=== PATIENT | female | born 1945 | race Two or more races ===

== ENCOUNTER → 2024-08-02 | Outpatient (CLI) | payer MEDICARE, BC, SELFPAY ==
[2024-08-02 11:25] LABS: Basophils # (Auto) 0.1 Thou/mm3 (0.0-0.2); Basophils % (Auto) 1 % (0-2.5); Eosinophils # (Auto) 0.1 Thou/mm3 (0.0-0.5); Eosinophils % (Auto) 2 % (0-10); Hemoglobin 12.9 g/dL (12.0-16.0); Immature Granulocytes % (Auto) 1 % (0-0); Immature Granulocytes Auto 0.04 Thou/mm3 (0.00-0.00); Lymphocytes # (Auto) 1.4 Thou/mm3 (1.0-4.8); Lymphocytes % (Auto) 19 % (10-50); Mean Corpuscular HGB Conc 32.3 g/dl (31.0-37.0); Mean Corpuscular Hemoglobin 29.7 pg (25.0-35.0); Mean Corpuscular Volume 92 fL (80-100); Monocytes # (Auto) 0.5 Thou/mm3 (0.0-0.8); Monocytes % (Auto) 6 % (0-12); Neutrophils # (Auto) 5.1 Thou/mm3 (1.8-7.7); Neutrophils % (Auto) 71 % (37-80); Nucleated Red Blood Cell % 0 /100 WBC (0); Platelet Count 285 Thou/mm3 (140-440); RDW Standard Deviation 48.5 fL (36.4-46.3); Red Blood Count 4.35 Miln/mm3 (4.00-5.20); White Blood Count 7.2 Thou/mm3 (3.6-11.0)
[2024-08-02 11:44] LABS: Alanine Aminotransferase 23 U/L (10-49); Albumin, Serum 4.9 gm/dL (3.4-4.8); Albumin/Globulin Ratio 2.2 (1.2-2.2); Alkaline Phosphatase 123 U/L (46-116); Anion Gap 10 (7-16); Aspartate Amino Transferase 21 U/L (0-34); BUN/Creatinine Ratio 18 Ratio (12-20); Bilirubin,Total 0.7 mg/dL (0.3-1.2); Blood Urea Nitrogen 18 mg/dL (9-23); Calcium 9.5 mg/dL (8.3-10.6); Calcium (Corrected) 9.5 mg/dL (8.5-10.1); Carbon Dioxide 26.5 mMol/L (20.0-31.0); Cardiac Risk Estimate 2.4 RATIO (3.7-5.6); Chloride 106 mMol/L (98-107); Cholesterol 147 mg/dL (132-200); Globulin 2.2 gm/dL (2.3-3.5); Glucose 123 mg/dL (74-106); HDL Cholesterol 62 mg/dL (40-60); LDL Cholesterol,Calculated 66 mg/dL (0-130); Osmolality,Calculated 286 (275-295); Phosphorous 3.1 mg/dL (2.4-5.1); Potassium 3.8 mMol/L (3.4-5.1); Sodium 142 mMol/L (136-145); Total Protein 7.1 gm/dL (5.7-8.2); Triglycerides 96 mg/dL (30-150); eGFR 58 See Note
[2024-08-02 11:58] LABS: Glucose Estimated Average 114 mg/dL (80-131); Hemoglobin A1C 5.6 % Hgb (4.8-6.0)
[2024-08-02 13:02] LABS: Collection Type, Urine Clean Catch
[2024-08-02 13:41] LABS: Creatinine MALB Rnd Ur 190 mg/dL (30-125); Microalbumin Creat Ratio 18 mg/gCrea (<30); Microalbumin, Random Urine 34 mg/L (0-300)
[2024-08-02 13:45] LABS: Bacteria,Urine Rare; Bilirubin,Urine Negative (Negative); Blood,Urine Negative (Negative); Clarity,Urine Clear (Clear/Hazy); Color,Urine Yellow (Lt Yel-Yel); Glucose, Urine Negative (Negative); Hyaline Casts,Urine 1 /hpf (0-1); Ketones,Urine Negative (Negative); Leukocyte Esterase,Urine Negative (Negative); Nitrite,Urine Negative (Negative); PH,Urine 6.5 (5.0-7.0); Protein,Urine Trace (Neg - Trace); RBC,Urine 2 /hpf (0-3); Specific Gravity,Urine 1.022 (1.001-1.035); Squamous Epithelial Cell,Urine 1 /hpf (0-5); Urobilinogen,Urine Negative mg/dL (0.0-1.0); WBC,Urine 1 /hpf (0-5)
== END | disposition home or self-care (01) ==
PROVIDERS: PCP Internal Medicine; Referring Provider Urology; Visit Provider Internal Medicine
DX: C64.1 Malignant neoplasm of right kidney, except renal pelvis (principal); I10 Essential (primary) hypertension; E03.9 Hypothyroidism, unspecified; E78.5 Hyperlipidemia, unspecified; R73.01 Impaired fasting glucose
CPT/HCPCS: 36415; 80053; 80061; 81001; 82043; 82570; 83036; 84100; 84443; 85025

== ENCOUNTER → 2024-08-26 | Outpatient (CLI) | payer MEDICARE, BC, SELFPAY ==
[2024-08-26 13:14] LABS: Blood Urea Nitrogen 19 mg/dL (9-23); Creatinine (Component) 0.9 mg/dL (0.6-1.3); eGFR > 60 See Note
== END | disposition home or self-care (01) ==
LOC: COPL 11:44
PROVIDERS: PCP Internal Medicine; Referring Provider Urology; Visit Provider Urology
DX: C64.1 Malignant neoplasm of right kidney, except renal pelvis (principal)
CPT/HCPCS: 36415; 82565; 84520

== ENCOUNTER → 2024-09-08 | Outpatient (CLI) | payer MEDICARE, BC, SELFPAY ==
--- NOTE | 2024-09-08 11:30 | XR_ITS ---
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 CTDI: vol (mGy) 17.7 DLP: (mGycm) 843 Technique: Multiple axial sections of the abdomen and pelvis have been obtained. 64 slice high-resolution scanner used. 3 mm axial sections have been obtained, post intravenous injection 60 cc [id number] 2-D sagittal, coronal reconstructions obtained. Low dose protocols were performed. One or more of the following dose reduction techniques were used; automated exposure control, adjustment of the mA and/or KV according to patient size, use of iterative reconstruction technique. 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
== END | disposition home or self-care (01) ==
PROVIDERS: PCP Internal Medicine; Referring Provider Urology; Visit Provider Urology
DX: C64.1 Malignant neoplasm of right kidney, except renal pelvis (principal)
CPT/HCPCS: 74177; A4649; Q9967

== ENCOUNTER 2024-09-20 11:49 | Emergency (ER) | payer MEDICARE, BC, SELFPAY ==
[2024-09-20 11:50] VITALS: BMI 26.5
[2024-09-20 12:29] VITALS: BP 138/86; PULSE 84; RESP 19; TEMP 37.5; O2SAT 97
--- NOTE | 2024-09-20 12:39 | XR_ITS ---
Examination: CT cervical spine without contrast 2-D sagittal reconstructions 2-D coronal reconstructions 3-D reconstructions. Exam date and time:September 20, 2024 1532 hours INDICATIONS: Onset neck pain today CTDI:vol (mGy) 12.4 DLP: (mGycm) 273 Technique: Multiple 2 mm axial sections of the cervical spine have been obtained. The coronal and sagittal reconstructions have been obtained. 3-D reconstructions have been obtained. Low dose protocols were performed. One or more of the following dose reduction techniques were used; automated exposure control, adjustment of the mA and/or KV according to patient size, use of iterative reconstruction technique. Findings: Axial sections demonstrate intact base of the skull. C1 exhibit satisfactory relationship to the odontoid. No acute cervical vertebral body fracture seen. Alignment posterior spinous processes satisfactory. Cervical fusion C5-C7 with anatomic alignment Grade 1 anterolisthesis, minimal, 1- 2 mm C6 on C7 C4-C5 moderate right neural foraminal stenosis Impression: No acute cervical fracture. Anatomic alignment cervical fusion C5-C7 C4-C5 moderate right neural foraminal stenosis
--- NOTE | 2024-09-20 12:41 | XR_ITS ---
Examination: Shoulder,left, 3 views Technique: Shoulder AP internal rotation, AP external rotation, Y view shoulder, 3 views Exam date and time :September 20, 2024 1255 hours INDICATIONS: Shoulder pain beginning 4 days ago FINDINGS: No shoulder fracture or dislocation Moderate to advanced narrowing glenohumeral joint No calcific tendinitis IMPRESSION: Moderate to advanced narrowing glenohumeral joint
--- NOTE | 2024-09-20 13:28 | PD.EDNECK ---
ED Neck Injury Pain RME/HPI General Chief Complaint: Neck Pain/Injury Stated Complaint: LEFT SHOULDER/NECK PAIN SINCE YESTERDAY Time Seen by Provider: 09/20/24 12:15 Source: patient Arrival date/time: 09/20/24 11:49 This is a 79-year-old female who presents to the emergency department with complaints of neck pain for approximately 1 week. Patient reports pain is elicited with turning neck [id number]. Patient denies any injury. History of osteoarthritis. Denies any peripheral neuropathy, no headache no fever. Mode of arrival: ambulatory Related Data Home Medications ?Medication ?Instructions ?Recorded ?Confirmed sertraline 100 mg tablet (Zoloft) 50 mg PO HS #0 tabs 07/11/15 09/21/24 alprazolam 0.5 mg tablet (Xanax) 0.5 mg PO PRN #0 tabs 09/19/16 09/21/24 levothyroxine 25 mcg tablet 25 mcg PO QDAY 04/23/19 09/21/24 lisinopril 10 mg tablet 10 mg PO QDAY 04/23/19 09/21/24 amlodipine 10 mg tablet 10 mg PO QDAY 09/21/24 09/21/24 apixaban 5 mg tablet (Eliquis) 5 mg PO BID 09/21/24 09/21/24 gabapentin 300 mg capsule 300 mg PO QDAY PRN 09/21/24 09/21/24 labetalol 100 mg tablet 100 mg PO BID 09/21/24 09/21/24 Previous Rx's ?Medication ?Instructions ?Recorded diazepam 5 mg tablet 5 mg PO .qhs #3 tabs 01/27/24 cyclobenzaprine 5 mg tablet 5 mg PO Q8H PRN muscle spasm #10 09/20/24 tabs Allergies Allergy/AdvReac Type Severity Reaction Status Date / Time ibuprofen Allergy Severe Swelling Verified 09/21/24 08:15 of Lip/Tongue/Throat Review of Systems Review of Systems Systems Reviewed: All systems reviewed, normal except as documented Narrative Review of Systems: Gen: No fever, no chills, no weight loss EYES: No discharge, no visual changes, no pain HEENT: No ear pain, no congestion, no sore throat PULM: No shortness of breath, no cough, no congestion CV: No chest pain, no dyspnea on exertion, no palpitations GI: No nausea, no vomiting, no diarrhea, no pain, no constipation : No frequency, no urgency,? no dysuria Musc/skel: No joint pain, no back pain, + paraspinal neck pain Skin: No rash? ED Exam Narrative Physical exam: General: Sittiing in Exam table in no acute distress, answering questions appropriately HENT: normocephalic, atraumatic, EOMI, PERRLA, moist mucous membranes, + paraspinal neck pain no vertebral tenderness. Chest: chest wall is nontender Cardiac: regular rate and rhythm, normal S1 and S2, no murmurs, rubs, or gallops, capillary refill ?2 seconds Pulmonary: clear to auscultation bilaterally, no wheezing, crackles, or rhonchi Abdominal: active bowel sounds, soft, nontender, nondistended Neuro: A&OX3, CN II-XII intact, sensation grossly intact bilaterally in UE and LE. Skin: no rashes, no ecchymosis Ext: no lower extremity edema Course Quality Measures none Orders Category Date Time Status CT cervical spine wo con Stat Exams 09/20/24 12:39 Completed XR shoulder LT min 2V Stat Exams 09/20/24 12:41 Completed Acetaminophen Tab [Tylenol ES Tab] Med 09/20/24 16:21 Discontinued 1,000 mg PO X1 ONE CYCLObenzaPRINE [Flexeril] Med 09/20/24 16:21 Discontinued 10 mg PO X1 ONE Vital Signs Vital signs: Vital Signs Temperature 99.5 F 09/20/24 12:29 Pulse Rate 84 09/20/24 12:29 Respiratory Rate 19 09/20/24 12:29 Blood Pressure 138/86 H 09/20/24 12:29 Pulse Oximetry (%) 97 09/20/24 12:29 Oxygen Delivery Method Room Air 09/20/24 12:29 Neck Pain MDM Narrative MDM Narrative:: 79-year-old female presented to the emergency department with complaints of neck pain most likely cervical stenosis. Negative for injury, no fever. Recent trauma. Cervical spine obtained which demonstrates cervical stenosis. Pain medication prescribed. Advised to follow-up with PCP Turn to the emergency department is any worsening symptoms or condition. Patient data External records reviewed:: [facility] previous records Clinical information provided by:: patient Social determinants that could affect healthcare access:: none Patient has the following chronic illnesses:: none How is presenting disease/condition affected by chronic disease/condition?: no chronic disease Evaluation data The following diagnostics were reviewed and interpreted by me:: radiology exam(s) Lab and/or radiology exams considered but not ordered:: none Interpretation Summary: Examination: CT cervical spine without contrast 2-D sagittal reconstructions 2-D coronal reconstructions 3-D reconstructions. Exam date and time:September 20, 2024 1532 hours INDICATIONS: Onset neck pain today CTDI:vol (mGy) 12.4 DLP: (mGycm) 273 Technique: Multiple 2 mm axial sections of the cervical spine have been obtained. The coronal and sagittal reconstructions have been obtained. 3-D reconstructions have been obtained. Low dose protocols were performed. One or more of the following dose reduction techniques were used; automated exposure control, adjustment of the mA and/or KV according to patient size, use of iterative reconstruction technique. Findings: Axial sections demonstrate intact base of the skull. C1 exhibit satisfactory relationship to the odontoid. No acute cervical vertebral body fracture seen. Alignment posterior spinous processes satisfactory. Cervical fusion C5-C7 with anatomic alignment Grade 1 anterolisthesis, minimal, 1- 2 mm C6 on C7 C4-C5 moderate right neural foraminal stenosis Impression: No acute cervical fracture. Anatomic alignment cervical fusion C5-C7 C4-C5 moderate right neural foraminal stenosis Examination: Shoulder,left, 3 views Technique: Shoulder AP internal rotation, AP external rotation, Y view shoulder, 3 views Exam date and time :September 20, 2024 1255 hours INDICATIONS: Shoulder pain beginning 4 days ago FINDINGS: No shoulder fracture or dislocation Moderate to advanced narrowing glenohumeral joint No calcific tendinitis IMPRESSION: Moderate to advanced narrowing glenohumeral joint Medications / Prescriptions Medications or Prescriptions considered but not ordered:: none Medication administrations:: Medication Administration History Discontinued Medications Acetaminophen (Acetaminophen 500 Mg Tablet) 1,000 mg PO X1 ONE Stop: 09/20/24 16:22 Last Admin: 09/20/24 16:31 Dose: 1,000 mg Documented By: MARY Cyclobenzaprine HCl (Cyclobenzaprine 5 Mg Tablet) 10 mg PO X1 ONE Stop: 09/20/24 16:22 Last Admin: 09/20/24 16:31 Dose: 10 mg Documented By: MARY All Medications administered and effective Consultations Consultation(s) initiated? (list below): No Diagnosis Neck Differential Diagnosis: cervical radiculopathy Most likely diagnosis given after review of the tests above:: Cervical radiculopathy Admission Indicated Admission indicated?: not indicated Explain why admission is indicated or not indicated:: none Admission Request Was there a request for admission?: No Disposition Plan Disposition Plan: Discharge Discharge Attestation Discharge Attestation: The patient and all family members were given an opportunity to ask questions and understood the discharge instructions. Discharge instructions specifically effects, indications for sooner follow up or return to the emergency department, and the expected course of current diagnosis. Patient condition: Stable Discharge Plan Plan Patient Disposition: HOME (Self Care) Disposition Comment: stable Patient condition on transfer: Stable Prescriptions/Referrals Prescriptions/Med Rec: New cyclobenzaprine 5 mg tablet 5 mg PO Q8H PRN (Reason: muscle spasm) Qty: 10 0RF No Action Eliquis 5 mg tablet 5 mg PO BID labetalol 100 mg tablet 100 mg PO BID amlodipine 10 mg tablet 10 mg PO QDAY gabapentin 300 mg capsule 300 mg PO QDAY PRN sertraline [Zoloft] 100 MG tablet 50 mg PO HS Qty: 0 alprazolam [Xanax] 0.5 MG tablet 0.5 mg PO PRN Qty: 0 Hold Instructions: Resume on 08/08/22. levothyroxine 25 mcg Tablet 25 mcg PO QDAY lisinopril 10 mg Tablet 10 mg PO QDAY diazepam 5 mg tablet 5 mg PO .qhs Qty: 3 0RF Referrals: Little Castorena MD [Primary Care Provider] - In 1 week Problem List Clinical Impression: Cervical radiculopathy Patient/Caregiver Discharge Instructions Discharge Activity: activity as tolerated Education Materials: Radiculopathy Cervical, ED Neck Sprain or Strain Additional Instructions: - It is very important that you follow-up with your primary doctor for follow-up care. Your CT of your neck demonstrates cervical stenosis which is mostly causing your pain and unable to turn your neck fully. I will prescribe you some Flexeril and pain medication that you can take for pain. You want to follow-up with your doctor you might need physical therapy and a repeat MRI in the future. Print Language: Kinyarwanda Stand Alone Forms: Demetrice Award Info., Patient Portal Info Letter KAI/ROBYN Supervising Physician KAI/ROBYN Supervising Physician: Dr. romo
[2024-09-20 14:30] VITALS: BP 135/68; PULSE 85; RESP 17; TEMP 37.2; O2SAT 98
[2024-09-20] MEDS: ACETAMINOPHEN 500 MG TABLET 1000 MG PO (16:31)
[2024-09-20] MEDS: CYCLObenzaPRINE 5 MG TABLET 10 MG PO (16:31)
== END 2024-09-20 16:34 | disposition home or self-care (01) ==
PROVIDERS: Emergency Provider Emergency Medicine; PCP Internal Medicine
DX: M48.02 Spinal stenosis, cervical region (principal); M43.22 Fusion of spine, cervical region; M54.12 Radiculopathy, cervical region; M25.812 Other specified joint disorders, left shoulder
CPT/HCPCS: 72125; 73030; 99284; A9270

== ENCOUNTER → 2024-09-21 | Outpatient (BNVA) | payer MEDICARE, BC, SELFPAY | END | disposition home or self-care (01) | PROVIDERS: PCP Internal Medicine; Referring Provider Internal Medicine; Visit Provider Urology | DX: N32.81 Overactive bladder (principal); K58.9 Irritable bowel syndrome, unspecified; I10 Essential (primary) hypertension; Z85.528 Personal history of other malignant neoplasm of kidney; I72.2 Aneurysm of renal artery | CPT/HCPCS: 81003; 99212; G0463 ==

== ENCOUNTER → 2024-12-09 | Outpatient (CLI) | payer MEDICARE, BC, SELFPAY ==
[2024-12-09 12:17] LABS: Basophils # (Auto) 0.1 Thou/mm3 (0.0-0.2); Basophils % (Auto) 1 % (0-2.5); Eosinophils # (Auto) 0.2 Thou/mm3 (0.0-0.5); Eosinophils % (Auto) 2 % (0-10); Hematocrit 39.9 % (36.0-46.0); Hemoglobin 12.7 g/dL (12.0-16.0); Immature Granulocytes % (Auto) 1 % (0-0); Immature Granulocytes Auto 0.05 Thou/mm3 (0.00-0.00); Lymphocytes # (Auto) 1.9 Thou/mm3 (1.0-4.8); Lymphocytes % (Auto) 26 % (10-50); Mean Corpuscular HGB Conc 31.8 g/dl (31.0-37.0); Mean Corpuscular Hemoglobin 29.1 pg (25.0-35.0); Mean Corpuscular Volume 92 fL (80-100); Monocytes # (Auto) 0.5 Thou/mm3 (0.0-0.8); Monocytes % (Auto) 7 % (0-12); Neutrophils # (Auto) 4.7 Thou/mm3 (1.8-7.7); Neutrophils % (Auto) 64 % (37-80); Nucleated Red Blood Cell % 0 /100 WBC (0); Platelet Count 280 Thou/mm3 (140-440); RDW Standard Deviation 48.8 fL (36.4-46.3); Red Blood Count 4.36 Miln/mm3 (4.00-5.20); White Blood Count 7.4 Thou/mm3 (3.6-11.0)
[2024-12-09 12:42] LABS: Alanine Aminotransferase 15 U/L (10-49); Albumin, Serum 4.4 gm/dL (3.4-4.8); Albumin/Globulin Ratio 1.8 (1.2-2.2); Alkaline Phosphatase 79 U/L (46-116); Anion Gap 9 (7-16); Aspartate Amino Transferase 18 U/L (0-34); BUN/Creatinine Ratio 25 Ratio (12-20); Bilirubin,Total 0.6 mg/dL (0.3-1.2); Blood Urea Nitrogen 25 mg/dL (9-23); Calcium 9.1 mg/dL (8.3-10.6); Calcium (Corrected) 9.1 mg/dL (8.5-10.1); Carbon Dioxide 26.3 mMol/L (20.0-31.0); Cardiac Risk Estimate 2.1 RATIO (3.7-5.6); Chloride 110 mMol/L (98-107); Cholesterol 147 mg/dL (132-200); Globulin 2.4 gm/dL (2.3-3.5); Glucose 109 mg/dL (74-106); HDL Cholesterol 69 mg/dL (40-60); LDL Cholesterol,Calculated 65 mg/dL (0-130); Osmolality,Calculated 294 (275-295); Potassium 3.9 mMol/L (3.4-5.1); Sodium 145 mMol/L (136-145); Thyroid Stimulating Hormone 3.71 uIU/mL (0.55-4.78); Total Protein 6.8 gm/dL (5.7-8.2); Triglycerides 65 mg/dL (30-150); eGFR 58 See Note
== END | disposition home or self-care (01) ==
LOC: COPL 11:16
PROVIDERS: PCP Internal Medicine; Referring Provider Internal Medicine Cardiovascular Disease; Visit Provider Internal Medicine Cardiovascular Disease
DX: E03.9 Hypothyroidism, unspecified (principal); I10 Essential (primary) hypertension; E78.5 Hyperlipidemia, unspecified
CPT/HCPCS: 36415; 80053; 80061; 81001; 84443; 85025

== ENCOUNTER → 2024-12-13 | Outpatient (CLI) | payer MEDICARE, BC, SELFPAY ==
--- NOTE | 2024-12-13 15:08 | XR_ITS ---
Examination: Knee, right , 3 views Technique: Knee AP, lateral, oblique 3 views Date and time of exam: December 13, 2024 1603 hours INDICATIONS: Right knee pain beginning 2 months ago. FINDINGS: Mild narrowing medial joint space Mild osteoarthritis lateral joint space Moderate osteoarthritis patellofemoral joint Small knee effusion Prominent osteopenia No fracture IMPRESSION: Mild to moderate tricompartment osteoarthritis
== END | disposition home or self-care (01) ==
LOC: CDIM 14:37
PROVIDERS: PCP Internal Medicine; Referring Provider Internal Medicine; Visit Provider Internal Medicine
DX: M17.11 Unilateral primary osteoarthritis, right knee (principal)
CPT/HCPCS: 73562

== ENCOUNTER → 2024-12-17 | Outpatient (BNVA) | payer MEDICARE, BC, SELFPAY | END | disposition home or self-care (01) | PROVIDERS: PCP Internal Medicine; Referring Provider Internal Medicine; Visit Provider Urology | DX: N32.81 Overactive bladder (principal); Z85.528 Personal history of other malignant neoplasm of kidney; I10 Essential (primary) hypertension; K58.9 Irritable bowel syndrome, unspecified; E78.00 Pure hypercholesterolemia, unspecified; K21.9 Gastro-esophageal reflux disease without esophagitis; E03.9 Hypothyroidism, unspecified | CPT/HCPCS: 99213; G0463 ==

== ENCOUNTER 2025-01-20 14:08 | Outpatient (AMB) | payer MEDICARE, BC, SELFPAY ==
[2025-01-20 14:24] VITALS: BP 132/69; PULSE 80; RESP 18; TEMP 36.1; O2SAT 94; BMI 27.0
--- NOTE | 2025-01-20 14:24 | ORTHONT_ITS ---
Vital signs 01/20/25 14:24 Height 1.6 m Height Method Stated Weight 69.201 kg Weight Measurement Method Standing Scale BMI 27.0 BP 132/69 H Blood Pressure Source Automatic Cuff Blood Pressure Location Left Upper Arm Position Sitting Respiration 18 Pulse 80 Pulse Source Monitor Temp 96.9 F Temp Source Temporal Artery Scan Pulse Oximetry (%) 94 L Oxygen Delivery Method Room Air Med/Allergies Allergies & Medications Allergies ibuprofen Allergy (Severe, Verified 01/20/25 14:25) Swelling of Lip/Tongue/Throat Medication Reconciliation sertraline 100 mg tablet (Zoloft) 50 mg PO HS #0 tabs 07/11/15 [History Confirmed 01/20/25] alprazolam 0.5 mg tablet (Xanax) 0.5 mg PO PRN #0 tabs 09/19/16 [History Confirmed 01/20/25] Held on 08/07/22. Instructions: Resume on 08/08/22. levothyroxine 25 mcg tablet 25 mcg PO QDAY 04/23/19 [History Confirmed 01/20/25] lisinopril 10 mg tablet 10 mg PO QDAY 04/23/19 [History Confirmed 01/20/25] diazepam 5 mg tablet 5 mg PO .qhs #3 tabs 01/27/24 [Rx Confirmed 01/20/25] cyclobenzaprine 5 mg tablet 5 mg PO Q8H PRN muscle spasm #10 tabs 09/20/24 [Rx Confirmed 01/20/25] amlodipine 10 mg tablet 10 mg PO QDAY 09/21/24 [History Confirmed 01/20/25] apixaban 5 mg tablet (Eliquis) 5 mg PO BID 09/21/24 [History Confirmed 01/20/25] gabapentin 300 mg capsule 300 mg PO QDAY PRN 09/21/24 [History Confirmed 01/20/25] labetalol 100 mg tablet 100 mg PO BID 09/21/24 [History Confirmed 01/20/25] Exam Exam Breathing is nonlabored. Patient has a normal mood and affect. Bilateral extremities were evaluated and demonstrates sensation intact to light touch. Palpable pedal pulses are present. No significant edema is present. Bilateral hips were examined. The patient has no pain with log roll of the hips. Internal rotation to 30 degrees and external rotation to 30 degrees is painless. Negative FADIR. Left knee was examined today. The left knee is in reasonable alignment. Range of motion from 0-120 degrees. Knee is stable to varus and valgus as well as AP translation with <5mm. Patient has a negative McMurrays. There is no pain with patellofemoral compression and no crepitus noted. The knee is nontender to palpation. The right knee was also examined. The right knee is in varus alignment. Range of motion from 0-115 degrees. Knee is stable to varus and valgus as well as AP translation with <5mm. Patient has a negative McMurrays. There is no pain with patellofemoral compression and no crepitus noted. The knee is tender to palpation medially. X-rays demonstrate mild to moderate arthritis.. An MRI also demonstrates moderate arthritis Assessment and Plan Problem List (1) Arthritis of right knee: Status: Acute Plan: Patient is a 79-year-old female with right knee pain and right knee arthritis. She has done well with nonoperative treatment including a cortisone injection. She cannot take NSAIDs because of her Eliquis history. We recommend continued nonoperative treatment for now. I would like to get a weightbearing x-ray. Advanced Care Planning Discussion Advance care planning discussed with:: patient Office Procedures GNS Level of Care Nursing/Assessment Patient Status: Initial/New Patient Nursing Assessment/Reassesment: Medication Reconciliation, Update PMH in EMR and Vital Signs Coordination of Care: Complex Care and Chronic Disease 1-5, Education Complex Pt/Fam, Consent,records obtained, informed consent, 1 Ins Authorization, Lab and Imaging orders, Results/Orders obtained and Staff clarify orders New Patient Charge New Patient Point Assignment: 1124 New Patient Point Charge: UNIT SECY Level 4 ([id number]) MA Intake Visit Data Collection New Patient or Established: New Patient (never been to [facility]) Reason for Visit:: RIGHT KNEE PAIN Seen by Clinical Staff ONLY (RN/MA): No PCP or OBGYN visit in last 3 months: Yes Hx Now: No Do You Feel Safe at Home: Yes Authorities Contacted: N/A Questionairres Past Medical History Past Medical History Have you ever been diagnosed with any of the following: Neurological Problems Seizures: No Migraine: No Cardiology Problems Hypercholesterolemia: Yes Congestive Heart Failure: No Hypertension: Yes Respiratory Problems Chronic Obstructive Pulmonary Disease (COPD): No Asthma: No Bronchitis: Yes Pneumonia: Yes Sleep Apnea: No Smoking: No Smoking Exposure: No Stomache/Intestinal Problems Gall Bladder Disease: Yes Diverticulitis: Yes Ulcer: Yes Irritable Bowel: Yes Hiatal Hernia: Yes Gastroesophageal Reflux Disease: Yes Genital/Urinary Problems Renal Disease: No Reproductive Problems Previous Pregnancies: Yes Musculoskeletal Problems Arthritis: Yes Endocrine Problems Diabetes Mellitus Type 1: No Diabetes Mellitus Type 2: No Hypothyroidism: Yes Blood Problems Anemia: Yes Psychologic Problems Depression: Yes Anxiety: Yes Other Problems Blood Transfusions: Yes Blood Transfusion Reaction: No Anesthesia Reactions: No Chicken Pox: Yes Measles: Yes Mumps: Yes Cancer: Yes Subjective Visit Visit for: new patient and knee Immunization / Flu Flu Vaccine in the Last 12 Months: No Flu Vaccine Exclusion Criteria: No Exclusion Criteria History of Present Illness Chief complaint: Right knee pain Luz is a pleasant 79-year-old female with right knee pain has been ongoing for several months. She had a right knee injection with Dr. Ruvalcaba. This helped with the pain quite tremendously. Pain Pain level (0-10): 2 Pain duration: COMES AND GOES Pain location: inside (medial), outside (lateral), anterior and posterior Pain quality: sharp, dull and aching Pain timing: other (specify) Associated signs & symptoms: weakness and other (specify) (SWELLING) Ambulatory data Ambulatory device: cane Treatments Number of previous injections: 1 Improvement with previous injections: Yes Improvement with PT: No Improvement with NSAIDS: no Review of Systems Review of Systems: All systems negative unless otherwise noted in HPI.
--- NOTE | 2025-01-20 14:39 | XR_ITS ---
Examination: Right knee 4 views TECHNIQUE: AP oblique lateral axial right knee 4 views Date and time: January 20, 2025 1554 hours INDICATIONS: Right knee pain beginning one month ago. FINDINGS: Mild to moderate tricompartment osteoarthritis most prominent lateral and patellofemoral joints No patellar dislocation No fracture IMPRESSION: Mild to moderate tricompartment joint narrowing
[2025-01-20 15:18] VITALS: BP 104/67; PULSE 66; RESP 17; TEMP 36.3; O2SAT 94; BMI 29.7
--- NOTE | 2025-01-20 15:18 | ORTHONT_ITS ---
Vital signs 01/20/25 14:24 01/20/25 15:18 01/20/25 15:21 Height 1.6 m 1.6 m Height Method Stated Stated Weight 69.201 kg 76.289 kg Weight Measurement Method Standing Scale Standing Scale BMI 27.0 29.7 BP 132/69 H 104/67 132/69 H Blood Pressure Source Automatic Cuff Automatic Cuff Blood Pressure Location Left Upper Arm Right Upper Arm Position Sitting Sitting Respiration 18 17 18 Pulse 80 66 80 Pulse Source Monitor Monitor Temp 96.9 F 97.3 F 96.9 F Temp Source Temporal Artery Scan Temporal Artery Scan Pulse Oximetry (%) 94 L 94 L 94 L Oxygen Delivery Method Room Air Room Air Med/Allergies Allergies & Medications Allergies ibuprofen Allergy (Severe, Verified 01/20/25 15:19) Swelling of Lip/Tongue/Throat Medication Reconciliation sertraline 100 mg tablet (Zoloft) 50 mg PO HS #0 tabs 07/11/15 [History Confirmed 01/20/25] alprazolam 0.5 mg tablet (Xanax) 0.5 mg PO PRN #0 tabs 09/19/16 [History Confirmed 01/20/25] Held on 08/07/22. Instructions: Resume on 08/08/22. levothyroxine 25 mcg tablet 25 mcg PO QDAY 04/23/19 [History Confirmed 01/20/25] lisinopril 10 mg tablet 10 mg PO QDAY 04/23/19 [History Confirmed 01/20/25] diazepam 5 mg tablet 5 mg PO .qhs #3 tabs 01/27/24 [Rx Confirmed 01/20/25] cyclobenzaprine 5 mg tablet 5 mg PO Q8H PRN muscle spasm #10 tabs 09/20/24 [Rx Confirmed 01/20/25] amlodipine 10 mg tablet 10 mg PO QDAY 09/21/24 [History Confirmed 01/20/25] apixaban 5 mg tablet (Eliquis) 5 mg PO BID 09/21/24 [History Confirmed 01/20/25] gabapentin 300 mg capsule 300 mg PO QDAY PRN 09/21/24 [History Confirmed 01/20/25] labetalol 100 mg tablet 100 mg PO BID 09/21/24 [History Confirmed 01/20/25] Assessment and Plan Problem List (1) Arthritis of right knee: Status: Acute Advanced Care Planning Discussion Advance care planning discussed with:: patient Office Procedures GNS Level of Care Nursing/Assessment Patient Status: Established Patient Nursing Assessment/Reassesment: Medication Reconciliation, Update PMH in EMR and Vital Signs Coordination of Care: Complex Care and Chronic Disease 1-5, Consent,records obtained, informed consent, Education Simp Pt/Fam, Results/Orders obtained and Staff clarify orders Established Patient Charge Established Patient Point Assignment: 90 Established Patient Point Charge: EP Level 3 (80-115) GNS Level of Care Nursing/Assessment Patient Status: Initial/New Patient Nursing Assessment/Reassesment: Medication Reconciliation, Update PMH in EMR and Vital Signs Coordination of Care: Complex Care and Chronic Disease 1-5, Education Complex Pt/Fam, Consent,records obtained, informed consent, 1 Ins Authorization, Lab and Imaging orders, Results/Orders obtained and Staff clarify orders New Patient Charge New Patient Point Assignment: 1124 New Patient Point Charge: IMPORT CLERK Level 4 ([id number]) MA Intake Visit Data Collection New Patient or Established: Established Patient (seen at [facility] within 3 years) Reason for Visit:: FU RT HIP/LT KNEE XRAY Seen by Clinical Staff ONLY (RN/MA): No Printing Sales Representative Required: No PCP or OBGYN visit in last 3 months: Yes Hx Now: No Do You Feel Safe at Home: Yes Authorities Contacted: N/A Questionairres Past Medical History Past Medical History Have you ever been diagnosed with any of the following: Neurological Problems Seizures: No Migraine: No Cardiology Problems Hypercholesterolemia: Yes Congestive Heart Failure: No Hypertension: Yes Respiratory Problems Chronic Obstructive Pulmonary Disease (COPD): No Asthma: No Bronchitis: Yes Pneumonia: Yes Sleep Apnea: No Smoking: No Smoking Exposure: No Stomache/Intestinal Problems Gall Bladder Disease: Yes Diverticulitis: Yes Ulcer: Yes Irritable Bowel: Yes Hiatal Hernia: Yes Gastroesophageal Reflux Disease: Yes Genital/Urinary Problems Renal Disease: No Reproductive Problems Previous Pregnancies: Yes Musculoskeletal Problems Arthritis: Yes Endocrine Problems Diabetes Mellitus Type 1: No Diabetes Mellitus Type 2: No Hypothyroidism: Yes Blood Problems Anemia: Yes Psychologic Problems Depression: Yes Anxiety: Yes Other Problems Blood Transfusions: Yes Blood Transfusion Reaction: No Anesthesia Reactions: No Chicken Pox: Yes Measles: Yes Mumps: Yes Cancer: Yes Subjective Visit Visit for: hip (RIGHT HIP) and knee (LEFT KNEE ) Immunization / Flu Flu Vaccine in the Last 12 Months: No Flu Vaccine Exclusion Criteria: Refused by Patient Personal History Red flag PMH: none Pain Pain level (0-10): 7 Pain duration: 2 WEEKS Pain location: groin and anterior Pain quality: sharp and aching Pain timing: night and increases with activity Associated signs & symptoms: stiffness Ambulatory data Ambulatory device: none Walking distance (minutes): 1 Treatments Number of previous injections: 0 Number of Physical Therapy sessions: 0 Improvement with NSAIDS: n/a Review of Systems Review of Systems: All systems negative unless otherwise noted in HPI.
[2025-01-20 15:21] VITALS: BP 132/69; PULSE 80; RESP 18; TEMP 36.1; O2SAT 94
== END 2025-01-20 14:43 | disposition home or self-care (01) ==
LOC: HODSRG 14:08
PROVIDERS: PCP Internal Medicine; Referring Provider Internal Medicine; Supervising Provider Orthopaedic Surgery Adult Reconstructive Orthopaedic Surgery; Visit Provider Orthopaedic Surgery Adult Reconstructive Orthopaedic Surgery
DX: M17.11 Unilateral primary osteoarthritis, right knee (principal); M25.561 Pain in right knee; I10 Essential (primary) hypertension; E78.00 Pure hypercholesterolemia, unspecified; K21.9 Gastro-esophageal reflux disease without esophagitis; E03.9 Hypothyroidism, unspecified
CPT/HCPCS: 73564; 99204; 99213; G0463

== ENCOUNTER 2025-02-15 08:59 | Outpatient (AMB) | payer MEDICARE, BC, SELFPAY ==
--- NOTE | 2025-02-15 09:16 | PD.ORTHCLVIS ---
Vital signs 02/15/25 09:17 Height 1.6 m Height Method Stated Weight 68.974 kg Weight Measurement Method Standing Scale BMI 26.9 BP 130/78 Blood Pressure Source Automatic Cuff Blood Pressure Location Left Upper Arm Position Sitting Respiration 18 Pulse 82 Pulse Source Monitor Temp 97.8 F Temp Source Temporal Artery Scan Pulse Oximetry (%) 97 Oxygen Delivery Method Room Air Med/Allergies Allergies & Medications Allergies ibuprofen Allergy (Severe, Verified 02/15/25 09:17) Swelling of Lip/Tongue/Throat Medication Reconciliation sertraline 100 mg tablet (Zoloft) 50 mg PO HS #0 tabs 07/11/15 [History Confirmed 02/15/25] alprazolam 0.5 mg tablet (Xanax) 0.5 mg PO PRN #0 tabs 09/19/16 [History Confirmed 02/15/25] Held on 08/07/22. Instructions: Resume on 08/08/22. levothyroxine 25 mcg tablet 25 mcg PO QDAY 04/23/19 [History Confirmed 02/15/25] lisinopril 10 mg tablet 10 mg PO QDAY 04/23/19 [History Confirmed 02/15/25] diazepam 5 mg tablet 5 mg PO .qhs #3 tabs 01/27/24 [Rx Confirmed 02/15/25] cyclobenzaprine 5 mg tablet 5 mg PO Q8H PRN muscle spasm #10 tabs 09/20/24 [Rx Confirmed 02/15/25] amlodipine 10 mg tablet 10 mg PO QDAY 09/21/24 [History Confirmed 02/15/25] apixaban 5 mg tablet (Eliquis) 5 mg PO BID 09/21/24 [History Confirmed 02/15/25] gabapentin 300 mg capsule 300 mg PO QDAY PRN 09/21/24 [History Confirmed 02/15/25] labetalol 100 mg tablet 100 mg PO BID 09/21/24 [History Confirmed 02/15/25] Exam Exam Breathing is nonlabored. Patient has a normal mood and affect. Bilateral extremities were evaluated and demonstrates sensation intact to light touch. Palpable pedal pulses are present. No significant edema is present. Bilateral hips were examined. The patient has no pain with log roll of the hips. Internal rotation to 30 degrees and external rotation to 30 degrees is painless. Negative FADIR. Left knee was examined today. The left knee is in reasonable alignment. Range of motion from 0-120 degrees. Knee is stable to varus and valgus as well as AP translation with <5mm. Patient has a negative McMurrays. There is no pain with patellofemoral compression and no crepitus noted. The knee is nontender to palpation. The right knee was also examined. The right knee is in varus alignment. Range of motion from 0-115 degrees. Knee is stable to varus and valgus as well as AP translation with <5mm. Patient has a negative McMurrays. There is no pain with patellofemoral compression and no crepitus noted. The knee is tender to palpation medially. X-rays demonstrate mild to moderate arthritis.. An MRI also demonstrates moderate arthritis Assessment and Plan Problem List (1) Arthritis of right knee: Status: Acute Plan: Patient is a 79-year-old female with right knee pain and right knee arthritis. She has done well with nonoperative treatment including a cortisone injection. She cannot take NSAIDs because of her Eliquis history. We recommend continued nonoperative treatment for now. She would like bilateral knee injections today Plan Recommend knee cortisone injections as patient would like to proceed with conservative treatment at this time. The risks and benefits of the procedure were reviewed with the patient and patient gave verbal consent to continue with the procedure. Procedure: performed by Dr. Easley Using sterile technique the Bilateral knees were thoroughly prepped with alcohol, and approximately 1 cc of Kenalog 40 mg/mL and 4 cc of 1% lidocaine was injected into each knee without resistance into the medial tibial femoral joint space. The patient tolerated the procedure. Advanced Care Planning Discussion Advance care planning discussed with:: patient Office Procedures GNS Level of Care Nursing/Assessment Patient Status: Established Patient Nursing Assessment/Reassesment: Medication Reconciliation, Update PMH in EMR and Vital Signs Coordination of Care: Complex Care and Chronic Disease 1-5, Education Complex Pt/Fam, Consent,records obtained, informed consent, Results/Orders obtained and Staff clarify orders Established Patient Charge Established Patient Point Assignment: 95 Established Patient Point Charge: EP Level 3 (80-115) Surgical Proc/IM SQ injection Major Surgical Procedure: Yes (BILATERAL KNEE INJECTION ) Medication Given Medication Given Medication Given: Yes Documented Dose Given: 8 Route: Infiitration Medication Given Medication Given Medication Given: Yes Documented Dose Given: 2 Route: Infiitration Office Meds Xylocaine 10 mg/mL (1 %) injection solution Performing Provider: Homar Easley MD Performing Location: [facility] Administered by: Homar Easley MD on 02/15/25 11:47 Dose Route Admin Location Dispensed Lot Number Expiration Date [facility] Wet Machine Cutter 40 mL Infiltration 40 mL [id number] triamcinolone acetonide 40 mg/mL suspension for injection Performing Provider: Homar Easley MD Performing Location: [facility] Administered by: Homar Easley MD on 02/15/25 11:47 Dose Route Admin Location Dispensed Lot Number Expiration Date [facility] Wet Machine Cutter 80 mg intra-articular KNEE 2 mL [id number] 03/01/26 59396-088-98 LORENZO ARZATE [place] Intake Visit Data Collection New Patient or Established: Established Patient (seen at [facility] within 3 years) Reason for Visit:: XRAY RESULTS BL KNEE PAIN/REQ INJ Seen by Clinical Staff ONLY (RN/MA): No Reservoir Engineer Required: No PCP or OBGYN visit in last 3 months: Yes Hx Now: No Do You Feel Safe at Home: Yes Authorities Contacted: N/A Questionairres Past Medical History Past Medical History Have you ever been diagnosed with any of the following: Neurological Problems Seizures: No Migraine: No Cardiology Problems Hypercholesterolemia: Yes Congestive Heart Failure: No Hypertension: Yes Respiratory Problems Chronic Obstructive Pulmonary Disease (COPD): No Asthma: No Bronchitis: Yes Pneumonia: Yes Sleep Apnea: No Smoking: No Smoking Exposure: No Stomache/Intestinal Problems Gall Bladder Disease: Yes Diverticulitis: Yes Ulcer: Yes Irritable Bowel: Yes Hiatal Hernia: Yes Gastroesophageal Reflux Disease: Yes Genital/Urinary Problems Renal Disease: No Reproductive Problems Previous Pregnancies: Yes Musculoskeletal Problems Arthritis: Yes Endocrine Problems Diabetes Mellitus Type 1: No Diabetes Mellitus Type 2: No Hypothyroidism: Yes Blood Problems Anemia: Yes Psychologic Problems Depression: Yes Anxiety: Yes Other Problems Blood Transfusions: Yes Blood Transfusion Reaction: No Anesthesia Reactions: No Chicken Pox: Yes Measles: Yes Mumps: Yes Cancer: Yes Subjective Visit Visit for: follow up visit, knee and x-rays Immunization / Flu Flu Vaccine in the Last 12 Months: No Flu Vaccine Exclusion Criteria: No Exclusion Criteria History of Present Illness Chief complaint: bl knee pain Luz is a pleasant 79-year-old female with right knee pain has been ongoing for several months. She had a right knee injection with Dr. Ruvalcaba. This helped with the pain quite tremendously. She has not had injections for a while and reports that she would like to get new injections today. She has moderate arthritis on x-ray Personal History Red flag PMH: none Pain Pain level (0-10): 7 Pain duration: CONSTANT Pain location: anterior Pain quality: sharp, dull and aching Pain timing: night, increases with activity and stairs Associated signs & symptoms: stiffness Ambulatory data Ambulatory device: none Walking distance (minutes): 1 Treatments Number of previous injections: 0 Improvement with previous injections: No Number of Physical Therapy sessions: 0 Improvement with PT: No Improvement with NSAIDS: no Review of Systems Review of Systems: All systems negative unless otherwise noted in HPI.
[2025-02-15 09:17] VITALS: BP 130/78; PULSE 82; RESP 18; TEMP 36.6; O2SAT 97; BMI 26.9
== END 2025-02-15 09:51 | disposition home or self-care (01) ==
LOC: HODSRG 08:59
PROVIDERS: PCP Internal Medicine; Referring Provider Internal Medicine; Supervising Provider Orthopaedic Surgery Adult Reconstructive Orthopaedic Surgery; Visit Provider Orthopaedic Surgery Adult Reconstructive Orthopaedic Surgery
DX: M17.11 Unilateral primary osteoarthritis, right knee (principal); M25.561 Pain in right knee; E78.00 Pure hypercholesterolemia, unspecified; I10 Essential (primary) hypertension; K21.9 Gastro-esophageal reflux disease without esophagitis; E03.9 Hypothyroidism, unspecified
CPT/HCPCS: 20610; 99213; J3301; J3490; G0463

== ENCOUNTER → 2025-03-16 | Outpatient (CLI) | payer MEDICARE, BC, SELFPAY ==
[2025-03-16 13:59] LABS: Collection Type, Urine Clean Catch
[2025-03-16 17:37] LABS: Bacteria,Urine 1+; Bilirubin,Urine Negative (Negative); Blood,Urine Negative (Negative); Clarity,Urine Turbid (Clear/Hazy); Color,Urine Yellow (Lt Yel-Yel); Glucose, Urine Negative (Negative); Ketones,Urine Negative (Negative); Leukocyte Esterase,Urine Positive (Negative); Nitrite,Urine Negative (Negative); PH,Urine 5.5 (5.0-7.0); Protein,Urine Trace (Neg - Trace); RBC,Urine 6 /hpf (0-3); Specific Gravity,Urine 1.025 (1.001-1.035); Squamous Epithelial Cell,Urine 3 /hpf (0-5); Urobilinogen,Urine Negative mg/dL (0.0-1.0); WBC,Urine 125 /hpf (0-5)
[2025-03-16 17:59] LABS: Culture Indicated,Urine Yes
== END | disposition home or self-care (01) ==
LOC: SLDO 13:56
PROVIDERS: Referring Provider Urology; Visit Provider Urology
DX: N39.0 Urinary tract infection, site not specified (principal)
CPT/HCPCS: 81001; 87077; 87086; 87186

== ENCOUNTER 2025-03-29 14:03 | Outpatient (AMB) | payer MEDICARE, BC, SELFPAY ==
--- NOTE | 2025-03-29 14:10 | PD.ORTHCLVIS ---
Vital signs 03/29/25 14:17 Height 1.6 m Height Method Stated Weight 68.549 kg Weight Measurement Method Standing Scale BMI 26.7 BP 106/68 Blood Pressure Source Automatic Cuff Blood Pressure Location Left Upper Arm Position Sitting Respiration 18 Pulse 82 Pulse Source Monitor Temp 97.0 F Temp Source Temporal Artery Scan Pulse Oximetry (%) 94 L Oxygen Delivery Method Room Air Med/Allergies Allergies & Medications Allergies ibuprofen Allergy (Severe, Verified 03/29/25 14:17) Swelling of Lip/Tongue/Throat Medication Reconciliation sertraline 100 mg tablet (Zoloft) 50 mg PO HS #0 tabs 07/11/15 [History Confirmed 03/29/25] alprazolam 0.5 mg tablet (Xanax) 0.5 mg PO PRN #0 tabs 09/19/16 [History Confirmed 03/29/25] Held on 08/07/22. Instructions: Resume on 08/08/22. levothyroxine 25 mcg tablet 25 mcg PO QDAY 04/23/19 [History Confirmed 03/29/25] lisinopril 10 mg tablet 10 mg PO QDAY 04/23/19 [History Confirmed 03/29/25] diazepam 5 mg tablet 5 mg PO .qhs #3 tabs 01/27/24 [Rx Confirmed 03/29/25] cyclobenzaprine 5 mg tablet 5 mg PO Q8H PRN muscle spasm #10 tabs 09/20/24 [Rx Confirmed 03/29/25] amlodipine 10 mg tablet 10 mg PO QDAY 09/21/24 [History Confirmed 03/29/25] apixaban 5 mg tablet (Eliquis) 5 mg PO BID 09/21/24 [History Confirmed 03/29/25] gabapentin 300 mg capsule 300 mg PO QDAY PRN 09/21/24 [History Confirmed 03/29/25] labetalol 100 mg tablet 100 mg PO BID 09/21/24 [History Confirmed 03/29/25] Exam Exam Breathing is nonlabored. Patient has a normal mood and affect. Bilateral extremities were evaluated and demonstrates sensation intact to light touch. Palpable pedal pulses are present. No significant edema is present. Bilateral hips were examined. The patient has no pain with log roll of the hips. Internal rotation to 30 degrees and external rotation to 30 degrees is painless. Negative FADIR. Left knee was examined today. The left knee is in reasonable alignment. Range of motion from 0-120 degrees. Knee is stable to varus and valgus as well as AP translation with <5mm. Patient has a negative McMurrays. There is no pain with patellofemoral compression and no crepitus noted. The knee is nontender to palpation. The right knee was also examined. The right knee is in varus alignment. Range of motion from 0-115 degrees. Knee is stable to varus and valgus as well as AP translation with <5mm. Patient has a negative McMurrays. There is no pain with patellofemoral compression and no crepitus noted. The knee is tender to palpation medially. X-rays demonstrate mild to moderate arthritis.. An MRI also demonstrates moderate arthritis Assessment and Plan Problem List (1) Arthritis of right knee: Status: Acute Plan: Patient is a 79-year-old female with right knee pain and right knee arthritis. She has done well with nonoperative treatment including a cortisone injection. She cannot take NSAIDs because of her Eliquis history. We recommend continued nonoperative treatment for now. She would like bilateral knee injections today Plan Recommend hyaluronic acid injections as patient would like to proceed with conservative treatment at this time. The risks and benefits of the procedure were reviewed with the patient and patient gave verbal consent to continue with the procedure. Procedure: performed by Dr. Easley Using sterile technique the right was thoroughly prepped with alcohol, and the entire syringe of Synvisc 1 was injected into each knee without resistance into the medial tibial femoral joint space. The patient tolerated the procedure. Advanced Care Planning Discussion Advance care planning discussed with:: patient Office Procedures GNS Level of Care Nursing/Assessment Patient Status: Established Patient Nursing Assessment/Reassesment: Medication Reconciliation, Update PMH in EMR and Vital Signs Coordination of Care: Complex Care and Chronic Disease 1-5, Education Complex Pt/Fam, Consent,records obtained, informed consent, Results/Orders obtained and Staff clarify orders Established Patient Charge Established Patient Point Assignment: 95 Established Patient Point Charge: EP Level 3 (80-115) Surgical Proc/IM SQ injection Major Surgical Procedure: Yes (KNEE INJECTION) Medication Given Medication Given Medication Given: Yes Documented Dose Given: 1 Route: Infiitration Office Meds Hyalgan 10 mg/mL intra-articular syringe Performing Provider: Homar Easley MD Performing Location: [facility] Administered by: Homar Easley MD on 03/29/25 14:30 Dose Route Admin Location Dispensed Lot Number Expiration Date [facility] Nematologist 20 mg intra-articular KNEE 20 mL [id number] 10/01/27 [address]-7 MA Intake Visit Data Collection New Patient or Established: Established Patient (seen at [facility] within 3 years) Seen by Clinical Staff ONLY (RN/MA): No Programming Instructor Required: No PCP or OBGYN visit in last 3 months: Yes Hx Now: No Do You Feel Safe at Home: Yes Authorities Contacted: N/A Questionairres Past Medical History Past Medical History Have you ever been diagnosed with any of the following: Neurological Problems Cerebrovascular Accident (CVA): No Transient Ischemic Attacks (TIA): No Dementia: No Alzheimer's Disease: No Parkinson's Disease: No Brain Tumor: No Meningitis: No Seizures: No Epilepsy: No Multiple Sclerosis: No Cerebral Palsy: No Amyotrophic Lateral Sclerosis (ALS/Diane Gehrig's): No Guillain-Clearwater Syndrome: No Spina Bifida: No Paralysis: No Peripheral Neuropathy: No Hong's Palsy: No Subdural Hematoma: No Migraine: No Head Trauma: No Spinal Cord Injury: No Traumatic Brain Injury: No Cardiology Problems Myocardial Infarction: No Cardiac Arrhythmia: No Atrial Fibrillation: No Angina: No Heart Murmur: No Coronary Artery Disease: No Atherosclerotic Heart Disease: No Peripheral Vascular Disease: No Hypercholesterolemia: Yes Aneurysm: No Congestive Heart Failure: No Congenital Heart Disease: No Valvular Heart Disease: No Rheumatic Fever: No Cardiomyopathy: No Edema: No Pericarditis: No Cellulitis: No Deep Vein Thrombosis: No Hypertension: Yes Hypotension: No Varicose Veins: No Respiratory Problems Chronic Obstructive Pulmonary Disease (COPD): No Asthma: No Bronchitis: Yes Pneumonia: Yes Sleep Apnea: No Smoking: No Smoking Exposure: No Stomache/Intestinal Problems Liver Cancer: No Hepatitis: No Cirrhosis: No Pancreatic Cancer: No Pancreatitis: No Celiac Disease: No Gall Bladder Disease: Yes Gastrointestinal Bleed: No Esophageal Varices: No Hanna's Esophagus: No Colitis: No Ulcerative Colitis: No Diverticulitis: Yes Diverticulosis: No Ulcer: Yes Colorectal Cancer: No Irritable Bowel: Yes Crohn's Disease: No Obstructive Bowel: No Hiatal Hernia: Yes Hemorrhoids: No Gastroesophageal Reflux Disease: Yes Polyps: No Obesity: No Genital/Urinary Problems Chronic Kidney Disease: No Renal Disease: No Kidney Stones: No Polycystic Kidney Disease: No Neurogenic Bladder: No Inguinal Hernia: No Dialysis: No Reproductive Problems Breast Cancer: No Endometriosis: No Fibroids: No Genital Herpes: No Gonorrhea: No Pelvic Inflammatory Disease: No Polycystic Ovarian Syndrome: No Previous Pregnancies: Yes Syphilis: No Uterine Prolapse: No Musculoskeletal Problems Arthritis: Yes Head,Eye,Nose,Throat Problems Cataracts: No Glaucoma: No Blind: No Retinal Detachment: No Macular Degeneration: No Chronic Ear Infections: No Deafness: No Eye Prosthesis: No Endocrine Problems Diabetes Mellitus Type 1: No Diabetes Mellitus Type 2: No Hypoglycemia: No Larimer's Syndrome: No Wayne's Disease: No Hyperthyroidism: No Hypothyroidism: Yes Thyroid Cancer: No Parathyroid Disease: No Pituitary Disease: No Systemic Lupus Erythematosus: No Syndrome of Inappropriate Antidiuretic Hormone: No Adrenal Disease: No Graves' Disease: No Blood Problems Anemia: Yes Leukemia: No Hemophilia: No Thalassemia: No Sickle Cell Disease: No Clotting Problems: No Psychologic Problems Schizophrenia: No Recreational Drug Use: No Bipolar Disorder: No Depression: Yes Anxiety: Yes Behavior Problems: No Self-Mutilation: No Attention Deficit Disorder: No Other Problems Hospitalization: No Autoimmune Disease: No Down Syndrome: No Autism: No Developmental Delay: No Cosmetic Surgery: No Shingles: No Falls: No Blood Transfusions: Yes Blood Transfusion Reaction: No Anesthesia Reactions: No Organ Transplant: No Chemotherapy: No Radiation Therapy: No Hyperbaric Therapy: No MRSA: No VRSA: No Vancomycin-Resistant Enterococci: No Human Immunodeficiency Virus (HIV): No Chicken Pox: Yes Measles: Yes Mumps: Yes Rubella (Latvian Measles): No Pertussis: No Klebsiella Pneumoniae Carbapenemase Producing Bacteria: No Clostridium Difficile: No Hepatitis A: No Hepatitis B: No Hepatitis C: No Communicable Disease: No Cancer: Yes Cervical Cancer: No Lung Cancer: No Ovarian Cancer: No Subjective Visit Visit for: follow up visit, knee and x-rays Immunization / Flu Flu Vaccine in the Last 12 Months: No Flu Vaccine Exclusion Criteria: No Exclusion Criteria History of Present Illness Chief complaint: bl knee pain Luz is a pleasant 79-year-old female with right knee pain has been ongoing for several months. She had a right knee injection with Dr. Ruvalcaba. This helped with the pain quite tremendously. She has not had injections for a while. She reports she did not get great relief with the last injections. She would like to try hyaluronic acid injections today. I reviewed her MRI from [facility] as well today which demonstrates arthritis Personal History Red flag PMH: none BMI Counceling provided: Yes Pain Pain level (0-10): 7 Pain duration: CONSTANT Pain location: inside (medial), outside (lateral) and anterior Pain quality: sharp, dull, aching and other (specify) (SWELLING) Pain timing: night, increases with activity and stairs Associated signs & symptoms: weakness Ambulatory data Ambulatory device: none Walking distance (minutes): 1 Treatments Number of previous injections: 1 Improvement with previous injections: No Number of Physical Therapy sessions: 0 Improvement with PT: No Improvement with NSAIDS: no Review of Systems Review of Systems: All systems negative unless otherwise noted in HPI.
[2025-03-29 14:17] VITALS: BP 106/68; PULSE 82; RESP 18; TEMP 36.1; O2SAT 94; BMI 26.7
== END 2025-03-29 14:48 | disposition home or self-care (01) ==
LOC: HODSRG 14:04
PROVIDERS: Supervising Provider Surgery; Visit Provider Orthopaedic Surgery Adult Reconstructive Orthopaedic Surgery
DX: M17.11 Unilateral primary osteoarthritis, right knee (principal); M25.561 Pain in right knee; I10 Essential (primary) hypertension; E78.00 Pure hypercholesterolemia, unspecified
CPT/HCPCS: 20610; 99213; G0463; J7325

== ENCOUNTER → 2025-03-30 | Outpatient (CLI) | payer MEDICARE, BC, SELFPAY | END | disposition home or self-care (01) | LOC: SLDO 10:35 | PROVIDERS: Referring Provider Urology; Visit Provider Urology | DX: N39.0 Urinary tract infection, site not specified (principal) | CPT/HCPCS: 87077; 87086; 87186 ==

== ENCOUNTER → 2025-04-08 | Outpatient (CLI) | payer MEDICARE, BC, SELFPAY ==
[2025-04-08 10:52] LABS: Collection Type, Urine Clean Catch
[2025-04-08 11:14] LABS: Bilirubin,Urine Negative (Negative); Blood,Urine Negative (Negative); Clarity,Urine Clear (Clear/Hazy); Color,Urine Yellow (Lt Yel-Yel); Glucose, Urine Negative (Negative); Hyaline Casts,Urine < 1 /hpf (0-1); Ketones,Urine Negative (Negative); Leukocyte Esterase,Urine Negative (Negative); Nitrite,Urine Negative (Negative); PH,Urine 6.0 (5.0-7.0); Protein,Urine Trace (Neg - Trace); RBC,Urine 2 /hpf (0-3); Specific Gravity,Urine 1.024 (1.001-1.035); Squamous Epithelial Cell,Urine < 1 /hpf (0-5); Urobilinogen,Urine Negative mg/dL (0.0-1.0); WBC,Urine 2 /hpf (0-5)
[2025-04-08 11:25] LABS: Parathyroid Hormone Intact 73.2 pg/ml (18.5-88.0)
[2025-04-08 11:28] LABS: Alanine Aminotransferase 15 U/L (10-49); Albumin, Serum 4.5 gm/dL (3.4-4.8); Albumin/Globulin Ratio 2.0 (1.2-2.2); Alkaline Phosphatase 63 U/L (46-116); Anion Gap 10 (7-16); Aspartate Amino Transferase 19 U/L (0-34); BUN/Creatinine Ratio 20 Ratio (12-20); Bilirubin,Total 0.5 mg/dL (0.3-1.2); Blood Urea Nitrogen 18 mg/dL (9-23); Calcium 9.2 mg/dL (8.3-10.6); Calcium (Corrected) 9.2 mg/dL (8.5-10.1); Carbon Dioxide 26.8 mMol/L (20.0-31.0); Cardiac Risk Estimate 2.2 RATIO (3.7-5.6); Chloride 108 mMol/L (98-107); Cholesterol 138 mg/dL (132-200); Creatinine (Component) 0.9 mg/dL (0.6-1.3); Globulin 2.3 gm/dL (2.3-3.5); Glucose 114 mg/dL (74-106); HDL Cholesterol 64 mg/dL (40-60); LDL Cholesterol,Calculated 58 mg/dL (0-130); Osmolality,Calculated 291 (275-295); Potassium 3.7 mMol/L (3.4-5.1); Sodium 145 mMol/L (136-145); Thyroid Stimulating Hormone 3.48 uIU/mL (0.55-4.78); Total Protein 6.8 gm/dL (5.7-8.2); Triglycerides 82 mg/dL (30-150); eGFR > 60 See Note
[2025-04-08 11:28] LABS: Creatinine MALB Rnd Ur 159 mg/dL (30-125); Microalbumin Creat Ratio 15 mg/gCrea (<30); Microalbumin, Random Urine 24 mg/L (0-300)
== END | disposition home or self-care (01) ==
LOC: COPL 10:22
PROVIDERS: PCP Internal Medicine; Referring Provider Internal Medicine; Visit Provider Internal Medicine
DX: N17.9 Acute kidney failure, unspecified (principal); E03.9 Hypothyroidism, unspecified; E78.5 Hyperlipidemia, unspecified; I10 Essential (primary) hypertension
CPT/HCPCS: 36415; 80053; 80061; 81001; 82043; 82570; 83970; 84443

== ENCOUNTER → 2025-04-13 | Outpatient (CLI) | payer MEDICARE, BC, SELFPAY ==
[2025-04-13 16:57] LABS: Basophils # (Auto) 0.1 Thou/mm3 (0.0-0.2); Basophils % (Auto) 1 % (0-2.5); Eosinophils # (Auto) 0.1 Thou/mm3 (0.0-0.5); Eosinophils % (Auto) 1 % (0-10); Hematocrit 41.7 % (36.0-46.0); Hemoglobin 13.1 g/dL (12.0-16.0); Immature Granulocytes Auto 0.09 Thou/mm3 (0.00-0.00); Lymphocytes # (Auto) 1.6 Thou/mm3 (1.0-4.8); Lymphocytes % (Auto) 14 % (10-50); Mean Corpuscular HGB Conc 31.4 g/dl (31.0-37.0); Mean Corpuscular Hemoglobin 30.1 pg (25.0-35.0); Mean Corpuscular Volume 96 fL (80-100); Monocytes # (Auto) 0.9 Thou/mm3 (0.0-0.8); Monocytes % (Auto) 8 % (0-12); Neutrophils # (Auto) 8.2 Thou/mm3 (1.8-7.7); Neutrophils % (Auto) 75 % (37-80); Nucleated Red Blood Cell # 0.00 Thou/mm3 (0.00-0.00); Nucleated Red Blood Cell % 0 /100 WBC (0); Platelet Count 301 Thou/mm3 (140-440); RDW Standard Deviation 47.6 fL (36.4-46.3); Red Blood Count 4.35 Miln/mm3 (4.00-5.20); White Blood Count 10.9 Thou/mm3 (3.6-11.0)
[2025-04-13 17:22] LABS: Alanine Aminotransferase 12 U/L (10-49); Albumin, Serum 4.6 gm/dL (3.4-4.8); Albumin/Globulin Ratio 1.8 (1.2-2.2); Alkaline Phosphatase 64 U/L (46-116); Anion Gap 9 (7-16); Aspartate Amino Transferase 17 U/L (0-34); BUN/Creatinine Ratio 23 Ratio (12-20); Bilirubin,Total 0.5 mg/dL (0.3-1.2); Blood Urea Nitrogen 23 mg/dL (9-23); Calcium 10.3 mg/dL (8.3-10.6); Calcium (Corrected) 10.3 mg/dL (8.5-10.1); Carbon Dioxide 26.9 mMol/L (20.0-31.0); Chloride 109 mMol/L (98-107); Creatinine (Component) 1.0 mg/dL (0.6-1.3); Globulin 2.5 gm/dL (2.3-3.5); Glucose 119 mg/dL (74-106); Osmolality,Calculated 293 (275-295); Potassium 3.9 mMol/L (3.4-5.1); Sodium 145 mMol/L (136-145); Total Protein 7.1 gm/dL (5.7-8.2); eGFR 58 See Note
[2025-04-13 17:42] LABS: Sed Rate (ESR) 36 mm/hr (0-30)
== END | disposition home or self-care (01) ==
LOC: COPL 14:02
PROVIDERS: PCP Internal Medicine; Referring Provider Internal Medicine; Visit Provider Internal Medicine
DX: Z00.00 Encounter for general adult medical examination without abnormal findings (principal); D64.9 Anemia, unspecified
CPT/HCPCS: 36415; 80053; 85025; 85652

== ENCOUNTER 2025-04-14 14:16 | Outpatient (AMB) | payer MEDICARE, BC, SELFPAY ==
[2025-04-14 14:33] VITALS: BP 114/77; PULSE 80; RESP 18; TEMP 36.2; O2SAT 95; BMI 27.0
--- NOTE | 2025-04-14 14:33 | PD.ORTHCLVIS ---
Vital signs 04/14/25 14:33 Height 1.6 m Height Method Stated Weight 69.173 kg Weight Measurement Method Standing Scale BMI 27.0 BP 114/77 Blood Pressure Source Automatic Cuff Blood Pressure Location Left Upper Arm Position Sitting Respiration 18 Pulse 80 Pulse Source Monitor Temp 97.2 F Temp Source Temporal Artery Scan Pulse Oximetry (%) 95 Oxygen Delivery Method Room Air Med/Allergies Allergies & Medications Allergies ibuprofen Allergy (Severe, Verified 04/14/25 14:34) Swelling of Lip/Tongue/Throat Medication Reconciliation sertraline 100 mg tablet (Zoloft) 50 mg PO HS #0 tabs 07/11/15 [History Confirmed 04/14/25] alprazolam 0.5 mg tablet (Xanax) 0.5 mg PO PRN #0 tabs 09/19/16 [History Confirmed 04/14/25] Held on 08/07/22. Instructions: Resume on 08/08/22. levothyroxine 25 mcg tablet 25 mcg PO QDAY 04/23/19 [History Confirmed 04/14/25] lisinopril 10 mg tablet 10 mg PO QDAY 04/23/19 [History Confirmed 04/14/25] diazepam 5 mg tablet 5 mg PO .qhs #3 tabs 01/27/24 [Rx Confirmed 04/14/25] cyclobenzaprine 5 mg tablet 5 mg PO Q8H PRN muscle spasm #10 tabs 09/20/24 [Rx Confirmed 04/14/25] amlodipine 10 mg tablet 10 mg PO QDAY 09/21/24 [History Confirmed 04/14/25] apixaban 5 mg tablet (Eliquis) 5 mg PO BID 09/21/24 [History Confirmed 04/14/25] gabapentin 300 mg capsule 300 mg PO QDAY PRN 09/21/24 [History Confirmed 04/14/25] labetalol 100 mg tablet 100 mg PO BID 09/21/24 [History Confirmed 04/14/25] Exam Exam Breathing is nonlabored. Patient has a normal mood and affect. Bilateral extremities were evaluated and demonstrates sensation intact to light touch. Palpable pedal pulses are present. No significant edema is present. Bilateral hips were examined. The patient has no pain with log roll of the hips. Internal rotation to 30 degrees and external rotation to 30 degrees is painless. Negative FADIR. Left knee was examined today. The left knee is in reasonable alignment. Range of motion from 0-120 degrees. Knee is stable to varus and valgus as well as AP translation with <5mm. Patient has a negative Mc[place]rays. There is no pain with patellofemoral compression and no crepitus noted. The knee is nontender to palpation. The right knee was also examined. The right knee is in varus alignment. Range of motion from 0-115 degrees. Knee is stable to varus and valgus as well as AP translation with <5mm. Patient has a negative Mc[place]rays. There is no pain with patellofemoral compression and no crepitus noted. The knee is tender to palpation medially. She does not have micromotion pain with flexion and extension of her knee X-rays demonstrate mild to moderate arthritis.. An MRI also demonstrates moderate arthritis Assessment and Plan Problem List (1) Arthritis of right knee: Status: Acute Plan: Patient is a 79-year-old female with right knee pain and right knee arthritis. She had a hyaluronic acid injection approximately 2 weeks ago. She reports that there has been increasing pain since then. She was told by someone that her knee feels warm even though it feels normal on exam. We will order a knee aspiration to rule out infection given her concern. She also would like to get a DVT ultrasound to rule out a clot which I think is reasonable. Plan We will see her back in approximately 2 weeks to go over her ultrasound and to see the results of her right knee aspiration Advanced Care Planning Discussion Advance care planning discussed with:: patient Office Procedures GNS Level of Care Nursing/Assessment Patient Status: Established Patient Nursing Assessment/Reassesment: Medication Reconciliation, Update PMH in EMR and Vital Signs Coordination of Care: Complex Care and Chronic Disease 1-5, Education Complex Pt/Fam, Consent,records obtained, informed consent, Results/Orders obtained and Staff clarify orders Established Patient Charge Established Patient Point Assignment: 95 Established Patient Point Charge: EP Level 3 (80-115) MA Intake Visit Data Collection New Patient or Established: Established Patient (seen at [facility] within 3 years) Reason for Visit:: KNEE FOLLOW UP Seen by Clinical Staff ONLY (RN/MA): No Barrel Rifler Button Required: No PCP or OBGYN visit in last 3 months: Yes Hx Now: No Do You Feel Safe at Home: Yes Authorities Contacted: N/A Questionairres Past Medical History Past Medical History Have you ever been diagnosed with any of the following: Neurological Problems Cerebrovascular Accident (CVA): No Transient Ischemic Attacks (TIA): No Dementia: No Alzheimer's Disease: No Parkinson's Disease: No Brain Tumor: No Meningitis: No Seizures: No Epilepsy: No Multiple Sclerosis: No Cerebral Palsy: No Amyotrophic Lateral Sclerosis (ALS/Diane Gehrig's): No Guillain-[place] Syndrome: No Spina Bifida: No Paralysis: No Peripheral Neuropathy: No Hong's Palsy: No Subdural Hematoma: No Migraine: No Head Trauma: No Spinal Cord Injury: No Traumatic Brain Injury: No Cardiology Problems Myocardial Infarction: No Cardiac Arrhythmia: No Atrial Fibrillation: No Angina: No Heart Murmur: No Coronary Artery Disease: No Atherosclerotic Heart Disease: No Peripheral Vascular Disease: No Hypercholesterolemia: Yes Aneurysm: No Congestive Heart Failure: No Congenital Heart Disease: No Valvular Heart Disease: No Rheumatic Fever: No Cardiomyopathy: No Edema: No Pericarditis: No Cellulitis: No Deep Vein Thrombosis: No Hypertension: Yes Hypotension: No Varicose Veins: No Respiratory Problems Chronic Obstructive Pulmonary Disease (COPD): No Asthma: No Bronchitis: Yes Pneumonia: Yes Sleep Apnea: No Smoking: No Smoking Exposure: No Stomache/Intestinal Problems Liver Cancer: No Hepatitis: No Cirrhosis: No Pancreatic Cancer: No Pancreatitis: No Celiac Disease: No Gall Bladder Disease: Yes Gastrointestinal Bleed: No Esophageal Varices: No Hanna's Esophagus: No Colitis: No Ulcerative Colitis: No Diverticulitis: Yes Diverticulosis: No Ulcer: Yes Colorectal Cancer: No Irritable Bowel: Yes Crohn's Disease: No Obstructive Bowel: No Hiatal Hernia: Yes Hemorrhoids: No Gastroesophageal Reflux Disease: Yes Polyps: No Obesity: No Genital/Urinary Problems Chronic Kidney Disease: No Renal Disease: No Kidney Stones: No Polycystic Kidney Disease: No Neurogenic Bladder: No Inguinal Hernia: No Dialysis: No Reproductive Problems Breast Cancer: No Endometriosis: No Fibroids: No Genital Herpes: No Gonorrhea: No Pelvic Inflammatory Disease: No Polycystic Ovarian Syndrome: No Previous Pregnancies: Yes Syphilis: No Uterine Prolapse: No Musculoskeletal Problems Arthritis: Yes Head,Eye,Nose,Throat Problems Cataracts: No Glaucoma: No Blind: No Retinal Detachment: No Macular Degeneration: No Chronic Ear Infections: No Deafness: No Eye Prosthesis: No Endocrine Problems Diabetes Mellitus Type 1: No Diabetes Mellitus Type 2: No Hypoglycemia: No [place]'s Syndrome: No [place]'s Disease: No Hyperthyroidism: No Hypothyroidism: Yes Thyroid Cancer: No Parathyroid Disease: No Pituitary Disease: No Systemic Lupus Erythematosus: No Syndrome of Inappropriate Antidiuretic Hormone: No Adrenal Disease: No Graves' Disease: No Blood Problems Anemia: Yes Leukemia: No Hemophilia: No Thalassemia: No Sickle Cell Disease: No Clotting Problems: No Psychologic Problems Schizophrenia: No Recreational Drug Use: No Bipolar Disorder: No Depression: Yes Anxiety: Yes Behavior Problems: No Self-Mutilation: No Attention Deficit Disorder: No Other Problems Hospitalization: No Autoimmune Disease: No Down Syndrome: No Autism: No Developmental Delay: No Cosmetic Surgery: No Shingles: No Falls: No Blood Transfusions: Yes Blood Transfusion Reaction: No Anesthesia Reactions: No Organ Transplant: No Chemotherapy: No Radiation Therapy: No Hyperbaric Therapy: No MRSA: No VRSA: No Vancomycin-Resistant Enterococci: No Human Immunodeficiency Virus (HIV): No Chicken Pox: Yes Measles: Yes Mumps: Yes Rubella ([place] Measles): No Pertussis: No Klebsiella Pneumoniae Carbapenemase Producing Bacteria: No Clostridium Difficile: No Hepatitis A: No Hepatitis B: No Hepatitis C: No Communicable Disease: No Cancer: Yes Cervical Cancer: No Lung Cancer: No Ovarian Cancer: No Subjective Visit Visit for: follow up visit and knee Immunization / Flu Flu Vaccine in the Last 12 Months: No Flu Vaccine Exclusion Criteria: No Exclusion Criteria History of Present Illness Chief complaint: bl knee pain Luz is a pleasant 79-year-old female with right knee pain has been ongoing for several months. She had a right knee injection with Dr. Ruvalcaba. This helped with the pain quite tremendously. She has not had injections for a while. She reports she did not get great relief with the last injections. She would like to try hyaluronic acid injections today. She reports in the last 2 weeks she has had an increase in knee pain. She has no pain with micromotion and is walking with just a cane. She is very much worried about an infection and we will work this up. I do not think she has an infection from the hyaluronic acid injection based on her clinical exam Personal History Red flag PMH: none BMI Counceling provided: Yes Pain Pain level (0-10): 7 Pain duration: CONSTANT Pain location: inside (medial), outside (lateral) and anterior Pain quality: sharp, dull, aching and other (specify) (SWELLING) Pain timing: night, increases with activity and stairs Associated signs & symptoms: weakness Ambulatory data Ambulatory device: none Walking distance (minutes): 1 Treatments Number of previous injections: 1 Improvement with previous injections: No Number of Physical Therapy sessions: 0 Improvement with PT: No Improvement with NSAIDS: no Review of Systems Review of Systems: All systems negative unless otherwise noted in HPI.
== END 2025-04-14 14:41 | disposition home or self-care (01) ==
LOC: HODSRG 14:16
PROVIDERS: PCP Internal Medicine; Referring Provider Internal Medicine; Supervising Provider Orthopaedic Surgery Adult Reconstructive Orthopaedic Surgery; Visit Provider Orthopaedic Surgery Adult Reconstructive Orthopaedic Surgery
DX: M17.11 Unilateral primary osteoarthritis, right knee (principal); M25.561 Pain in right knee; I10 Essential (primary) hypertension; E78.00 Pure hypercholesterolemia, unspecified; K21.9 Gastro-esophageal reflux disease without esophagitis; E03.9 Hypothyroidism, unspecified
CPT/HCPCS: 99213; G0463

== ENCOUNTER → 2025-04-20 | Outpatient (CLI) | payer MEDICARE, BC, SELFPAY ==
--- NOTE | 2025-04-20 13:15 | XR_ITS ---
Examination: Screening digital mammography, bilateral Computer aided detection 3-D breast Tomosynthesis, bilateral Date and time of exam: April 20, 2025, 1321 hours Compared to mammograms dating to April 29, 2017 Indication: Screening Technique: Nonmagnified MLO, CC views of the breasts to been obtained, reconstructed from 3-D Tomosynthesis images. R2 computer aided detection program utilized for evaluation of suspicious masses and/or abnormal calcifications. 3-D Tomosynthesis images obtained. Findings: Scattered areas of fibroglandular density. Benign calcifications No interval suspicious masses Impression: BI-RADS category II: Benign Findings. Recommend 1 year follow-up mammogram.
== END | disposition home or self-care (01) ==
PROVIDERS: Referring Provider Internal Medicine; Visit Provider Internal Medicine
DX: Z12.31 Encounter for screening mammogram for malignant neoplasm of breast (principal); R92.323 Mammographic fibroglandular density, bilateral breasts; R92.1 Mammographic calcification found on diagnostic imaging of breast
CPT/HCPCS: 77063; 77067

== ENCOUNTER → 2025-05-03 | Outpatient (CLI) | payer MEDICARE, BC, SELFPAY ==
--- NOTE | 2025-05-03 08:30 | XR_ITS ---
Examination: Right knee joint aspiration with imaging guidance Fluoroscopy AP right knee single view INDICATIONS: Right knee swelling and pain months. Exam date and time: May 03, 2025 0831 hours Informed consent provided. Technique: A timeout was completed verifying correct patient, procedure, site, positioning. The patient was placed in supine position appropriate for the steroid injection The patient's site was prepped and draped in sterile fashion 5 cc 1% lidocaine administered locally for anesthesia. Sterile drape applied, maximum barrier sterile technique. Utilizing fluoroscopic guidance, 18-gauge single placed in the knee joint Successful aspiration 5 cc viscous yellowish fluid withdrawn The patient was in satisfactory and stable condition on completion of the procedure Attending radiologist was present for the entire procedure Estimated blood loss 0 cc. Impression: Successful fluoroscopically guided knee joint aspiration with imaging guidance Fluoroscopy 0.1 minute radiation dose 0.07 milligray 1 spot fluoroscopic knee film .
--- NOTE | 2025-05-03 09:29 | XR_ITS ---
Examination: Duplex scan of the lower extremity, unilateral right complete Date and time of exam: May 03, 2025 1013 hours INDICATIONS: Right knee pain and swelling beginning several weeks ago Technique: Duplex scan of the extremity veins using B-mode/grayscale imaging and Doppler spectral analysis and color flow Attention is directed to internal echogenicity, compression and augmentation involving these veins, color flow assessment, spectral analysis Findings: Major deep venous structures in the extremity demonstrate normal course and caliber. There is no evidence of deep vein thrombosis. Normal color flow and spectral analysis Impression: Negative for DVT..
== END | disposition home or self-care (01) ==
PROVIDERS: PCP Internal Medicine; Referring Provider Orthopaedic Surgery Adult Reconstructive Orthopaedic Surgery; Visit Provider Orthopaedic Surgery Adult Reconstructive Orthopaedic Surgery
DX: M17.11 Unilateral primary osteoarthritis, right knee (principal); M25.461 Effusion, right knee
CPT/HCPCS: 20610; 77002; 93971

== ENCOUNTER 2025-05-12 14:34 | Outpatient (AMB) | payer MEDICARE, BC, SELFPAY ==
--- NOTE | 2025-05-12 14:27 | PD.ORTHTELE ---
Med/Allergies Allergies & Medications Allergies ibuprofen Allergy (Severe, Verified 05/12/25 14:27) Swelling of Lip/Tongue/Throat Medication Reconciliation sertraline 100 mg tablet (Zoloft) 50 mg PO HS #0 tabs 07/11/15 [History Confirmed 05/12/25] alprazolam 0.5 mg tablet (Xanax) 0.5 mg PO PRN #0 tabs 09/19/16 [History Confirmed 05/12/25] Held on 08/07/22. Instructions: Resume on 08/08/22. levothyroxine 25 mcg tablet 25 mcg PO QDAY 04/23/19 [History Confirmed 05/12/25] lisinopril 10 mg tablet 10 mg PO QDAY 04/23/19 [History Confirmed 05/12/25] diazepam 5 mg tablet 5 mg PO .qhs #3 tabs 01/27/24 [Rx Confirmed 05/12/25] cyclobenzaprine 5 mg tablet 5 mg PO Q8H PRN muscle spasm #10 tabs 09/20/24 [Rx Confirmed 05/12/25] amlodipine 10 mg tablet 10 mg PO QDAY 09/21/24 [History Confirmed 05/12/25] apixaban 5 mg tablet (Eliquis) 5 mg PO BID 09/21/24 [History Confirmed 05/12/25] gabapentin 300 mg capsule 300 mg PO QDAY PRN 09/21/24 [History Confirmed 05/12/25] labetalol 100 mg tablet 100 mg PO BID 09/21/24 [History Confirmed 05/12/25] Subjective Visit Visit for: follow up visit Immunization / Flu Flu Vaccine in the Last 12 Months: Yes Flu Vaccine Exclusion Criteria: Already Received History of Present Illness Chief complaint: Right knee pain Luz is a pleasant 79-year-old female with right knee pain after a gel injection. 1 physician told her she might have an infection. We did a knee aspiration and it is negative. Cell count is at 333. Patient reports the pain is significantly better. She would like a cortisone injection on the opposite knee. Pain Pain level (0-10): 7 Pain duration: ON AND OFF Pain location: anterior Pain quality: dull and aching Pain timing: increases with activity Associated signs & symptoms: none Ambulatory data Ambulatory device: cane Treatments Improvement with previous injections: No Improvement with PT: No Improvement with NSAIDS: no Review of Systems Review of Systems: All systems negative unless otherwise noted in HPI. Assessment and Plan Problem List (1) Arthritis of right knee: Status: Acute Plan: Patient is a 79-year-old female with right knee pain and right knee arthritis. her right knee pain is significantly better. She had a knee aspiration with a cell count of 333 and a differential of 21% Plan Patient is doing well and we will see her back for follow-up on a routine basis Advanced Care Planning Discussion Advance care planning discussed with:: patient Office Procedures GNS Level of Care Nursing/Assessment Patient Status: Established Patient Nursing Assessment/Reassesment: Medication Reconciliation, Update PMH in EMR and Vital Signs Coordination of Care: Complex Care and Chronic Disease 1-5, Education Complex Pt/Fam, Consent,records obtained, informed consent, Results/Orders obtained and Staff clarify orders Established Patient Charge Established Patient Point Assignment: 95 Telehealth Telemed Phone/Video with patient at home & Dr,PA,PURE PAK MACHINE OPERATOR: Yes
== END 2025-05-12 14:53 | disposition home or self-care (01) ==
LOC: HODSRG 14:34
PROVIDERS: PCP Internal Medicine; Referring Provider Internal Medicine; Supervising Provider Orthopaedic Surgery Adult Reconstructive Orthopaedic Surgery; Visit Provider Orthopaedic Surgery Adult Reconstructive Orthopaedic Surgery
DX: M17.11 Unilateral primary osteoarthritis, right knee (principal); M25.561 Pain in right knee
CPT/HCPCS: 99212; G0463

== ENCOUNTER 2025-05-17 09:45 | Outpatient (AMB) | payer MEDICARE, BC, SELFPAY ==
--- NOTE | 2025-05-17 10:11 | ORTHONT_ITS ---
Vital signs 05/17/25 10:12 Height 1.6 m Height Method Measured Weight 68.974 kg Weight Measurement Method Standing Scale BMI 26.9 BP 124/81 Blood Pressure Source Automatic Cuff Blood Pressure Location Left Upper Arm Position Sitting Respiration 18 Pulse 83 Pulse Source Monitor Temp 96.5 F L Temp Source Temporal Artery Scan Pulse Oximetry (%) 96 Oxygen Delivery Method Room Air Med/Allergies Allergies & Medications Allergies ibuprofen Allergy (Severe, Verified 05/17/25 10:12) Swelling of Lip/Tongue/Throat Medication Reconciliation sertraline 100 mg tablet (Zoloft) 50 mg PO HS #0 tabs 07/11/15 [History Confirmed 05/17/25] alprazolam 0.5 mg tablet (Xanax) 0.5 mg PO PRN #0 tabs 09/19/16 [History Confirmed 05/17/25] Held on 08/07/22. Instructions: Resume on 08/08/22. levothyroxine 25 mcg tablet 25 mcg PO QDAY 04/23/19 [History Confirmed 05/17/25] lisinopril 10 mg tablet 10 mg PO QDAY 04/23/19 [History Confirmed 05/17/25] diazepam 5 mg tablet 5 mg PO .qhs #3 tabs 01/27/24 [Rx Confirmed 05/17/25] cyclobenzaprine 5 mg tablet 5 mg PO Q8H PRN muscle spasm #10 tabs 09/20/24 [Rx Confirmed 05/17/25] amlodipine 10 mg tablet 10 mg PO QDAY 09/21/24 [History Confirmed 05/17/25] apixaban 5 mg tablet (Eliquis) 5 mg PO BID 09/21/24 [History Confirmed 05/17/25] gabapentin 300 mg capsule 300 mg PO QDAY PRN 09/21/24 [History Confirmed 05/17/25] labetalol 100 mg tablet 100 mg PO BID 09/21/24 [History Confirmed 05/17/25] Exam Exam Breathing is nonlabored. Patient has a normal mood and affect. Bilateral extremities were evaluated and demonstrates sensation intact to light touch. Palpable pedal pulses are present. No significant edema is present. Bilateral hips were examined. The patient has no pain with log roll of the hips. Internal rotation to 30 degrees and external rotation to 30 degrees is painless. Negative FADIR. Left knee was examined today. The left knee is in reasonable alignment. Range of motion from 0-120 degrees. Knee is stable to varus and valgus as well as AP translation with <5mm. Patient has a negative McMurrays. There is no pain with patellofemoral compression and no crepitus noted. The knee is nontender to palpation. The right knee was also examined. The right knee is in varus alignment. Range of motion from 0-115 degrees. Knee is stable to varus and valgus as well as AP translation with <5mm. Patient has a negative McMurrays. There is no pain with patellofemoral compression and no crepitus noted. The knee is tender to palpation medially. She does not have micromotion pain with flexion and extension of her knee X-rays demonstrate mild to moderate arthritis.. An MRI also demonstrates moderate arthritis Assessment and Plan Problem List (1) Arthritis of right knee: Status: Acute Plan: Patient is a 79-year-old female with right knee pain and right knee arthritis. her right knee pain is significantly better. She had a knee aspiration with a cell count of 333 and a differential of 21% Plan She would like a cortisone injection of her left knee. Recommend knee cortisone injection as patient would like to proceed with conservative treatment at this time. The risks and benefits of the procedure were reviewed with the patient and patient gave verbal consent to continue with the procedure. Procedure: performed by Dr. Easley Using sterile technique the left knee was thoroughly prepped with alcohol, and approximately 1 cc of Depo-Medrol 80mg/mL and 4 cc of 0.2% ropivacaine was injected without resistance into the medial tibial femoral joint space. The patient tolerated the procedure. Advanced Care Planning Discussion Advance care planning discussed with:: patient Office Procedures GNS Level of Care Nursing/Assessment Patient Status: Established Patient Nursing Assessment/Reassesment: Medication Reconciliation, Update PMH in EMR and Vital Signs Coordination of Care: Complex Care and Chronic Disease 1-5, Education Complex Pt/Fam, Consent,records obtained, informed consent, Results/Orders obtained and Staff clarify orders Established Patient Charge Established Patient Point Assignment: 95 Established Patient Point Charge: EP Level 3 (80-115) Surgical Proc/IM SQ injection Major Surgical Procedure: Yes (KNEE INJECTION ) Medication Given Medication Given Medication Given: Yes Documented Dose Given: 1 Route: Infiitration Medication Given Medication Given Medication Given: Yes Documented Dose Given: 4 Route: Infiitration Office Meds methylprednisolone acetate 80 mg/mL suspension for injection Performing Provider: Homar Easley MD Performing Location: [facility] Administered by: Homar Easley MD on 05/17/25 11:16 Dose Route Admin Location Dispensed Lot Number Expiration Date Pack age [facility] Outside Operator 80 mg intra-articular 1 mL [id number] 01/28/27 [address]-7 7 [id number] [employer] ropivacaine (PF) 2 mg/mL (0.2 %) injection solution Performing Provider: Homar Easley MD Performing Location: [facility] Administered by: Homar Easley MD on 05/17/25 11:16 Dose Route Admin Location Dispensed Lot Number Expiration Date Pack age [facility] Outside Operator 20 mL Infiltration 20 mL [id number] 09/30/27 76125-577-30 [id number] [facility] Intake Visit Data Collection New Patient or Established: Established Patient (seen at [facility] within 3 years) Reason for Visit:: LEFT KNEE INJECTION Seen by Clinical Staff ONLY (RN/MA): No Orthotic Practitioner Required: No PCP or OBGYN visit in last 3 months: Yes Hx Now: No Do You Feel Safe at Home: Yes Authorities Contacted: N/A Questionairres Past Medical History Past Medical History Have you ever been diagnosed with any of the following: Neurological Problems Cerebrovascular Accident (CVA): No Transient Ischemic Attacks (TIA): No Dementia: No Alzheimer's Disease: No Parkinson's Disease: No Brain Tumor: No Meningitis: No Seizures: No Epilepsy: No Multiple Sclerosis: No Cerebral Palsy: No Amyotrophic Lateral Sclerosis (ALS/Diane Gehrig's): No Guillain-Marion Syndrome: No Spina Bifida: No Paralysis: No Peripheral Neuropathy: No Hong's Palsy: No Subdural Hematoma: No Migraine: No Head Trauma: No Spinal Cord Injury: No Traumatic Brain Injury: No Cardiology Problems Myocardial Infarction: No Cardiac Arrhythmia: No Atrial Fibrillation: No Angina: No Heart Murmur: No Coronary Artery Disease: No Atherosclerotic Heart Disease: No Peripheral Vascular Disease: No Hypercholesterolemia: Yes Aneurysm: No Congestive Heart Failure: No Congenital Heart Disease: No Valvular Heart Disease: No Rheumatic Fever: No Cardiomyopathy: No Edema: No Pericarditis: No Cellulitis: No Deep Vein Thrombosis: No Hypertension: Yes Hypotension: No Varicose Veins: No Respiratory Problems Chronic Obstructive Pulmonary Disease (COPD): No Asthma: No Bronchitis: Yes Pneumonia: Yes Sleep Apnea: No Smoking: No Smoking Exposure: No Stomache/Intestinal Problems Liver Cancer: No Hepatitis: No Cirrhosis: No Pancreatic Cancer: No Pancreatitis: No Celiac Disease: No Gall Bladder Disease: Yes Gastrointestinal Bleed: No Esophageal Varices: No Hanna's Esophagus: No Colitis: No Ulcerative Colitis: No Diverticulitis: Yes Diverticulosis: No Ulcer: Yes Colorectal Cancer: No Irritable Bowel: Yes Crohn's Disease: No Obstructive Bowel: No Hiatal Hernia: Yes Hemorrhoids: No Gastroesophageal Reflux Disease: Yes Polyps: No Obesity: No Genital/Urinary Problems Chronic Kidney Disease: No Renal Disease: No Kidney Stones: No Polycystic Kidney Disease: No Neurogenic Bladder: No Inguinal Hernia: No Dialysis: No Reproductive Problems Breast Cancer: No Endometriosis: No Fibroids: No Genital Herpes: No Gonorrhea: No Pelvic Inflammatory Disease: No Polycystic Ovarian Syndrome: No Previous Pregnancies: Yes Syphilis: No Uterine Prolapse: No Musculoskeletal Problems Arthritis: Yes Head,Eye,Nose,Throat Problems Cataracts: No Glaucoma: No Blind: No Retinal Detachment: No Macular Degeneration: No Chronic Ear Infections: No Deafness: No Eye Prosthesis: No Endocrine Problems Diabetes Mellitus Type 1: No Diabetes Mellitus Type 2: No Hypoglycemia: No [place]'s Syndrome: No [place]orte's Disease: No Hyperthyroidism: No Hypothyroidism: Yes Thyroid Cancer: No Parathyroid Disease: No Pituitary Disease: No Systemic Lupus Erythematosus: No Syndrome of Inappropriate Antidiuretic Hormone: No Adrenal Disease: No Graves' Disease: No Blood Problems Anemia: Yes Leukemia: No Hemophilia: No Thalassemia: No Sickle Cell Disease: No Clotting Problems: No Psychologic Problems Schizophrenia: No Recreational Drug Use: No Bipolar Disorder: No Depression: Yes Anxiety: Yes Behavior Problems: No Self-Mutilation: No Attention Deficit Disorder: No Other Problems Hospitalization: No Autoimmune Disease: No Down Syndrome: No Autism: No Developmental Delay: No Cosmetic Surgery: No Shingles: No Falls: No Blood Transfusions: Yes Blood Transfusion Reaction: No Anesthesia Reactions: No Organ Transplant: No Chemotherapy: No Radiation Therapy: No Hyperbaric Therapy: No MRSA: No VRSA: No Vancomycin-Resistant Enterococci: No Human Immunodeficiency Virus (HIV): No Chicken Pox: Yes Measles: Yes Mumps: Yes Rubella (Nepali Measles): No Pertussis: No Klebsiella Pneumoniae Carbapenemase Producing Bacteria: No Clostridium Difficile: No Hepatitis A: No Hepatitis B: No Hepatitis C: No Communicable Disease: No Cancer: Yes Cervical Cancer: No Lung Cancer: No Ovarian Cancer: No Subjective Visit Visit for: follow up visit and knee Immunization / Flu Flu Vaccine in the Last 12 Months: No Flu Vaccine Exclusion Criteria: No Exclusion Criteria History of Present Illness Chief complaint: LEFT KNEE INJECTION Luz is a pleasant 79-year-old female with right knee pain has been ongoing for several months. She had a right knee injection with Dr. Ruvalcaba. This helped with the pain quite tremendously. She has not had injections for a while. She reports she did not get great relief with the last injections. She would like to try a left knee cortisone injection today Personal History Red flag PMH: none BMI Counceling provided: Yes Pain Pain level (0-10): 7 Pain duration: CONSTANT Pain location: inside (medial), outside (lateral) and anterior Pain quality: sharp, dull, aching and other (specify) (SWELLING) Pain timing: night, increases with activity and stairs Associated signs & symptoms: weakness Ambulatory data Ambulatory device: none Walking distance (minutes): 1 Treatments Number of previous injections: 1 Improvement with previous injections: No Number of Physical Therapy sessions: 0 Improvement with PT: No Improvement with NSAIDS: no Review of Systems Review of Systems: All systems negative unless otherwise noted in HPI.
[2025-05-17 10:12] VITALS: BP 124/81; PULSE 83; RESP 18; TEMP 35.8; O2SAT 96; BMI 26.9
== END 2025-05-17 10:32 | disposition home or self-care (01) ==
PROVIDERS: PCP Internal Medicine; Referring Provider Internal Medicine; Supervising Provider Orthopaedic Surgery Adult Reconstructive Orthopaedic Surgery; Visit Provider Orthopaedic Surgery Adult Reconstructive Orthopaedic Surgery
DX: M17.11 Unilateral primary osteoarthritis, right knee (principal); M25.561 Pain in right knee; I10 Essential (primary) hypertension; E78.00 Pure hypercholesterolemia, unspecified; K21.9 Gastro-esophageal reflux disease without esophagitis; E03.9 Hypothyroidism, unspecified
CPT/HCPCS: 20610; 99213; J1010; J2795; G0463

== ENCOUNTER 2025-06-30 09:36 | Outpatient (AMB) | payer MEDICARE, BC, SELFPAY ==
[2025-06-30 10:13] VITALS: BP 109/72; PULSE 76; RESP 18; TEMP 36.1; O2SAT 98; BMI 27.5
--- NOTE | 2025-06-30 10:13 | PD.ORTHCLVIS ---
Vital signs 06/30/25 10:13 Height 1.6 m Height Method Measured Weight 70.477 kg Weight Measurement Method Standing Scale BMI 27.5 BP 109/72 Blood Pressure Source Automatic Cuff Blood Pressure Location Left Upper Arm Position Sitting Respiration 18 Pulse 76 Pulse Source Monitor Temp 96.9 F Temp Source Temporal Artery Scan Pulse Oximetry (%) 98 Oxygen Delivery Method Room Air Med/Allergies Allergies & Medications Allergies ibuprofen Allergy (Severe, Verified 06/30/25 10:19) Swelling of Lip/Tongue/Throat Medication Reconciliation sertraline 100 mg tablet (Zoloft) 50 mg PO HS #0 tabs 07/11/15 [History Confirmed 06/30/25] alprazolam 0.5 mg tablet (Xanax) 0.5 mg PO PRN #0 tabs 09/19/16 [History Confirmed 06/30/25] Held on 08/07/22. Instructions: Resume on 08/08/22. levothyroxine 25 mcg tablet 25 mcg PO QDAY 04/23/19 [History Confirmed 06/30/25] lisinopril 10 mg tablet 10 mg PO QDAY 04/23/19 [History Confirmed 06/30/25] diazepam 5 mg tablet 5 mg PO .qhs #3 tabs 01/27/24 [Rx Confirmed 06/30/25] cyclobenzaprine 5 mg tablet 5 mg PO Q8H PRN muscle spasm #10 tabs 09/20/24 [Rx Confirmed 06/30/25] amlodipine 10 mg tablet 10 mg PO QDAY 09/21/24 [History Confirmed 06/30/25] apixaban 5 mg tablet (Eliquis) 5 mg PO BID 09/21/24 [History Confirmed 06/30/25] gabapentin 300 mg capsule 300 mg PO QDAY PRN 09/21/24 [History Confirmed 06/30/25] labetalol 100 mg tablet 100 mg PO BID 09/21/24 [History Confirmed 06/30/25] Exam Exam Breathing is nonlabored. Patient has a normal mood and affect. Bilateral extremities were evaluated and demonstrates sensation intact to light touch. Palpable pedal pulses are present. No significant edema is present. Bilateral hips were examined. The patient has no pain with log roll of the hips. Internal rotation to 30 degrees and external rotation to 30 degrees is painless. Negative FADIR. Left knee was examined today. The left knee is in reasonable alignment. Range of motion from 0-120 degrees. Knee is stable to varus and valgus as well as AP translation with <5mm. Patient has a negative McMurrays. There is no pain with patellofemoral compression and no crepitus noted. The knee is nontender to palpation. The right knee was also examined. The right knee is in varus alignment. Range of motion from 0-115 degrees. Knee is stable to varus and valgus as well as AP translation with <5mm. Patient has a negative McMurrays. There is no pain with patellofemoral compression and no crepitus noted. The knee is tender to palpation medially. She does not have micromotion pain with flexion and extension of her knee X-rays demonstrate mild to moderate arthritis.. An MRI also demonstrates moderate arthritis Assessment and Plan Problem List (1) Arthritis of right knee: Status: Acute Plan: Patient is a 79-year-old female with right knee pain and right knee arthritis. her right knee pain is significantly better. She had a knee aspiration with a cell count of 333 and a differential of 21% Plan Recommend knee cortisone injection as patient would like to proceed with conservative treatment at this time. The risks and benefits of the procedure were reviewed with the patient and patient gave verbal consent to continue with the procedure. Procedure: performed by Dr. Easley Using sterile technique the Right knee was thoroughly prepped with alcohol, and approximately 1 cc of Depo-Medrol 80mg/mL and 4 cc of 0.2% ropivacaine was injected without resistance into the medial tibial femoral joint space. The patient tolerated the procedure. Recommend knee cortisone injection as patient would like to proceed with conservative treatment at this time. The risks and benefits of the procedure were reviewed with the patient and patient gave verbal consent to continue with the procedure. Procedure: performed by Dr. Easley Using sterile technique the left knee was thoroughly prepped with alcohol, and approximately 1 cc of Depo-Medrol 80mg/mL and 4 cc of 0.2% ropivacaine was injected without resistance into the medial tibial femoral joint space. The patient tolerated the procedure. Advanced Care Planning Discussion Advance care planning discussed with:: patient Office Procedures GNS Level of Care Nursing/Assessment Patient Status: Established Patient Nursing Assessment/Reassesment: Medication Reconciliation, Update PMH in EMR and Vital Signs Coordination of Care: Complex Care and Chronic Disease 1-5, Education Complex Pt/Fam, Consent,records obtained, informed consent, Results/Orders obtained and Staff clarify orders Established Patient Charge Established Patient Point Assignment: 95 Established Patient Point Charge: EP Level 3 (80-115) Surgical Proc/IM SQ injection Minor Surgical Procedure: Yes (KNEE INJECTION ) Medication Given Medication Given Medication Given: Yes Documented Dose Given: 2 Route: Infiitration Medication Given Medication Given Medication Given: Yes Documented Dose Given: 8 Route: Infiitration Office Meds methylprednisolone acetate 80 mg/mL suspension for injection Performing Provider: Homar Easley MD Performing Location: [facility] Administered by: Homar Easley MD on 06/30/25 13:08 Dose Route Admin Location Dispensed Lot Number Expiration Date Package [facility] Modern Languages Professor 160 mg intra-articular KNEE 2 mL [id number] 03/31/27 [address]-7 [id number] [employer] ropivacaine (PF) 2 mg/mL (0.2 %) injection solution Performing Provider: Homar Easley MD [facility] Administered by: Homar Easley MD on 06/30/25 13:08 Dose Route Admin Location Dispensed Lot Number Expiration Date Package NDC NDC Modern Languages Professor 40 mL Infiltration KNEE 40 mL [id number] 10/01/27 24184-226-20 [id number] [facility] Intake Visit Data Collection New Patient or Established: Established Patient (seen at [facility] within 3 years) Reason for Visit:: BL KNEE INJECTION Seen by Clinical Staff ONLY (RN/MA): No Meteorology Professor Required: No PCP or OBGYN visit in last 3 months: Yes Hx Now: No Do You Feel Safe at Home: Yes Authorities Contacted: N/A Questionairres Past Medical History Past Medical History Have you ever been diagnosed with any of the following: Neurological Problems Cerebrovascular Accident (CVA): No Transient Ischemic Attacks (TIA): No Dementia: No Alzheimer's Disease: No Parkinson's Disease: No Brain Tumor: No Meningitis: No Seizures: No Epilepsy: No Multiple Sclerosis: No Cerebral Palsy: No Amyotrophic Lateral Sclerosis (ALS/Diane Gehrig's): No Guillain-Welch Syndrome: No Spina Bifida: No Paralysis: No Peripheral Neuropathy: No Hong's Palsy: No Subdural Hematoma: No Migraine: No Head Trauma: No Spinal Cord Injury: No Traumatic Brain Injury: No Cardiology Problems Myocardial Infarction: No Cardiac Arrhythmia: No Atrial Fibrillation: No Angina: No Heart Murmur: No Coronary Artery Disease: No Atherosclerotic Heart Disease: No Peripheral Vascular Disease: No Hypercholesterolemia: Yes Aneurysm: No Congestive Heart Failure: No Congenital Heart Disease: No Valvular Heart Disease: No Rheumatic Fever: No Cardiomyopathy: No Edema: No Pericarditis: No Cellulitis: No Deep Vein Thrombosis: No Hypertension: Yes Hypotension: No Varicose Veins: No Respiratory Problems Chronic Obstructive Pulmonary Disease (COPD): No Asthma: No Bronchitis: Yes Pneumonia: Yes Sleep Apnea: No Smoking: No Smoking Exposure: No Stomache/Intestinal Problems Liver Cancer: No Hepatitis: No Cirrhosis: No Pancreatic Cancer: No Pancreatitis: No Celiac Disease: No Gall Bladder Disease: Yes Gastrointestinal Bleed: No Esophageal Varices: No Hanna's Esophagus: No Colitis: No Ulcerative Colitis: No Diverticulitis: Yes Diverticulosis: No Ulcer: Yes Colorectal Cancer: No Irritable Bowel: Yes Crohn's Disease: No Obstructive Bowel: No Hiatal Hernia: Yes Hemorrhoids: No Gastroesophageal Reflux Disease: Yes Polyps: No Obesity: No Genital/Urinary Problems Chronic Kidney Disease: No Renal Disease: No Kidney Stones: No Polycystic Kidney Disease: No Neurogenic Bladder: No Inguinal Hernia: No Dialysis: No Reproductive Problems Breast Cancer: No Endometriosis: No Fibroids: No Genital Herpes: No Gonorrhea: No Pelvic Inflammatory Disease: No Polycystic Ovarian Syndrome: No Previous Pregnancies: Yes Syphilis: No Uterine Prolapse: No Musculoskeletal Problems Arthritis: Yes Head,Eye,Nose,Throat Problems Cataracts: No Glaucoma: No Blind: No Retinal Detachment: No Macular Degeneration: No Chronic Ear Infections: No Deafness: No Eye Prosthesis: No Endocrine Problems Diabetes Mellitus Type 1: No Diabetes Mellitus Type 2: No Hypoglycemia: No Alberto's Syndrome: No Gosper's Disease: No Hyperthyroidism: No Hypothyroidism: Yes Thyroid Cancer: No Parathyroid Disease: No Pituitary Disease: No Systemic Lupus Erythematosus: No Syndrome of Inappropriate Antidiuretic Hormone: No Adrenal Disease: No Graves' Disease: No Blood Problems Anemia: Yes Leukemia: No Hemophilia: No Thalassemia: No Sickle Cell Disease: No Clotting Problems: No Psychologic Problems Schizophrenia: No Recreational Drug Use: No Bipolar Disorder: No Depression: Yes Anxiety: Yes Behavior Problems: No Self-Mutilation: No Attention Deficit Disorder: No Other Problems Hospitalization: No Autoimmune Disease: No Down Syndrome: No Autism: No Developmental Delay: No Cosmetic Surgery: No Shingles: No Falls: No Blood Transfusions: Yes Blood Transfusion Reaction: No Anesthesia Reactions: No Organ Transplant: No Chemotherapy: No Radiation Therapy: No Hyperbaric Therapy: No MRSA: No VRSA: No Vancomycin-Resistant Enterococci: No Human Immunodeficiency Virus (HIV): No Chicken Pox: Yes Measles: Yes Mumps: Yes Rubella ([place] Measles): No Pertussis: No Klebsiella Pneumoniae Carbapenemase Producing Bacteria: No Clostridium Difficile: No Hepatitis A: No Hepatitis B: No Hepatitis C: No Communicable Disease: No Cancer: Yes Cervical Cancer: No Lung Cancer: No Ovarian Cancer: No Subjective Visit Visit for: follow up visit and knee Immunization / Flu Flu Vaccine in the Last 12 Months: No Flu Vaccine Exclusion Criteria: No Exclusion Criteria History of Present Illness Chief complaint: LEFT KNEE INJECTION Luz is a pleasant 79-year-old female with right knee pain has been ongoing for several months. She has been getting bilateral knee injections and reports good relief with today. She would like to start physical therapy for Personal History Red flag PMH: none BMI Counceling provided: Yes Pain Pain level (0-10): 7 Pain duration: CONSTANT Pain location: inside (medial), outside (lateral) and anterior Pain quality: sharp, dull, aching and other (specify) (SWELLING) Pain timing: night, increases with activity and stairs Associated signs & symptoms: weakness Ambulatory data Ambulatory device: none Walking distance (minutes): 1 Treatments Number of previous injections: 1 Improvement with previous injections: No Number of Physical Therapy sessions: 0 Improvement with PT: No Improvement with NSAIDS: no Review of Systems Review of Systems: All systems negative unless otherwise noted in HPI.
== END 2025-06-30 10:46 | disposition home or self-care (01) ==
LOC: HODSRG 09:36
PROVIDERS: PCP Internal Medicine; Referring Provider Internal Medicine; Supervising Provider Orthopaedic Surgery Adult Reconstructive Orthopaedic Surgery; Visit Provider Orthopaedic Surgery Adult Reconstructive Orthopaedic Surgery
DX: M25.561 Pain in right knee (principal); M17.11 Unilateral primary osteoarthritis, right knee; I10 Essential (primary) hypertension
CPT/HCPCS: 20610; 99213; J1010; J2795; G0463

== ENCOUNTER → 2025-08-04 | Outpatient (CLI) | payer MEDICARE, BC, SELFPAY ==
[2025-08-04 11:05] LABS: Basophils # (Auto) 0.1 Thou/mm3 (0.0-0.2); Basophils % (Auto) 1 % (0-2.5); Eosinophils # (Auto) 0.1 Thou/mm3 (0.0-0.5); Eosinophils % (Auto) 2 % (0-10); Hematocrit 41.8 % (36.0-46.0); Hemoglobin 13.2 g/dL (12.0-16.0); Immature Granulocytes Auto 0.10 Thou/mm3 (0.00-0.00); Lymphocytes # (Auto) 1.6 Thou/mm3 (1.0-4.8); Lymphocytes % (Auto) 24 % (10-50); Mean Corpuscular HGB Conc 31.6 g/dl (31.0-37.0); Mean Corpuscular Hemoglobin 30.3 pg (25.0-35.0); Mean Corpuscular Volume 96 fL (80-100); Monocytes # (Auto) 0.5 Thou/mm3 (0.0-0.8); Monocytes % (Auto) 8 % (0-12); Neutrophils # (Auto) 4.3 Thou/mm3 (1.8-7.7); Neutrophils % (Auto) 64 % (37-80); Nucleated Red Blood Cell # 0.00 Thou/mm3 (0.00-0.00); Nucleated Red Blood Cell % 0 /100 WBC (0); Platelet Count 256 Thou/mm3 (140-440); RDW Standard Deviation 51.0 fL (36.4-46.3); Red Blood Count 4.36 Miln/mm3 (4.00-5.20); White Blood Count 6.8 Thou/mm3 (3.6-11.0)
[2025-08-04 11:22] LABS: Parathyroid Hormone Intact 82.6 pg/ml (18.5-88.0)
[2025-08-04 11:33] LABS: Alanine Aminotransferase 18 U/L (10-49); Albumin, Serum 4.9 gm/dL (3.4-4.8); Albumin/Globulin Ratio 2.0 (1.2-2.2); Alkaline Phosphatase 73 U/L (46-116); Anion Gap 11 (7-16); Aspartate Amino Transferase 22 U/L (0-34); BUN/Creatinine Ratio 19 Ratio (12-20); Bilirubin,Total 0.5 mg/dL (0.3-1.2); Blood Urea Nitrogen 17 mg/dL (9-23); Calcium 9.4 mg/dL (8.3-10.6); Calcium (Corrected) 9.4 mg/dL (8.5-10.1); Carbon Dioxide 27.0 mMol/L (20.0-31.0); Cardiac Risk Estimate 2.0 RATIO (3.7-5.6); Chloride 109 mMol/L (98-107); Cholesterol 161 mg/dL (132-200); Creatinine (Component) 0.9 mg/dL (0.6-1.3); Globulin 2.5 gm/dL (2.3-3.5); Glucose 110 mg/dL (74-106); HDL Cholesterol 81 mg/dL (40-60); LDL Cholesterol,Calculated 66 mg/dL (0-130); Osmolality,Calculated 294 (275-295); Potassium 3.8 mMol/L (3.4-5.1); Sodium 147 mMol/L (136-145); Thyroid Stimulating Hormone 2.43 uIU/mL (0.55-4.78); Total Protein 7.4 gm/dL (5.7-8.2); Triglycerides 70 mg/dL (30-150); eGFR > 60 See Note
[2025-08-04 11:35] LABS: Collection Type, Urine Clean Catch
[2025-08-04 12:26] LABS: Bilirubin,Urine Negative (Negative); Blood,Urine Negative (Negative); Clarity,Urine Clear (Clear/Hazy); Color,Urine Lt-Yellow (Lt Yel-Yel); Glucose, Urine Negative (Negative); Ketones,Urine Negative (Negative); Leukocyte Esterase,Urine Negative (Negative); Nitrite,Urine Negative (Negative); PH,Urine 6.0 (5.0-7.0); Protein,Urine Negative (Neg - Trace); RBC,Urine 4 /hpf (0-3); Specific Gravity,Urine 1.022 (1.001-1.035); Squamous Epithelial Cell,Urine 1 /hpf (0-5); Urobilinogen,Urine Negative mg/dL (0.0-1.0); WBC,Urine 1 /hpf (0-5)
[2025-08-04 12:46] LABS: Creatinine MALB Rnd Ur 125 mg/dL (30-125); Microalbumin Creat Ratio 34 mg/gCrea (<30); Microalbumin, Random Urine 42 mg/L (0-300)
== END | disposition home or self-care (01) ==
LOC: COPL 10:21
PROVIDERS: PCP Internal Medicine; Referring Provider Internal Medicine; Visit Provider Internal Medicine
DX: N17.9 Acute kidney failure, unspecified (principal); I10 Essential (primary) hypertension; E78.5 Hyperlipidemia, unspecified; E03.9 Hypothyroidism, unspecified
CPT/HCPCS: 36415; 80053; 80061; 81001; 82043; 82570; 83970; 84443; 85025

== ENCOUNTER → 2025-08-29 | Outpatient (CLI) | payer MEDICARE, BC, SELFPAY ==
[2025-09-05 07:27] LABS: Fecal Globin Result NOT DETECTED (NOT DETECTED)
== END | disposition home or self-care (01) ==
LOC: SLDO 11:18
PROVIDERS: PCP Internal Medicine; Referring Provider Internal Medicine; Visit Provider Internal Medicine
DX: Z12.11 Encounter for screening for malignant neoplasm of colon (principal)
CPT/HCPCS: 82274; G0328